=== PATIENT | male | born 1960 | race Caucasian/White ===

== ENCOUNTER 2019-03-27 12:29 | Observation (INO) ==
[2019-03-27 13:05] LABS: Bilirubin,Urine Negative (Negative); Blood,Urine Negative (Negative); Clarity,Urine Cloudy (Clear); Color,Urine Dark Yellow (Yellow); Glucose,Urine (UA) Normal (Normal); Ketones,Urine Negative (Negative); Leukocyte Esterase,Urine Large (Negative); Nitrite,Urine Negative (Negative); PH,Urine 7.5 pH Units (5.0-8.0); Protein,Urine 100 mg/dL (Neg-Trace); Specific Gravity,Urine > 1.030 (1.010-1.025); Urobilinogen,Urine Normal (Normal)
[2019-03-27 13:08] LABS: Bacteria,Urine Few per hpf (None-Few); Hyaline Casts,Urine Few per lpf (None-Few); RBC,Urine 50-100 per hpf (0-3); Squamous Epithelial Cell,Urine Many per lpf (None-Few); WBC,Urine TNTC per hpf (0-3)
[2019-03-27 13:54] LABS: Hematocrit 34.9 % (37.5-50.1); Hemoglobin 11.6 g/dL (12.9-16.9); Mean Corpuscular HGB Conc 33.2 g/dL (31.6-35.5); Mean Corpuscular Hemoglobin 34.1 pg (28.0-33.3); Mean Corpuscular Volume 102.6 fL (83.0-100.0); Mean Platelet Volume 11.5 fL (9.4-12.4); Platelet Count 124 K/mcL (140-400); Red Cell Distribution Width 12.6 % (11.5-14.5)
[2019-03-27 14:16] LABS: Alanine Aminotransferase 16 Units/L (7-52); Albumin 3.3 g/dL (3.5-5.7); Alkaline Phosphatase 72 Units/L (34-104); Aspartate Amino Transferase 16 Units/L (13-39); BUN/Creatinine Ratio 38 (6-26); Bilirubin,Total 0.3 mg/dL (0.3-1.0); Blood Urea Nitrogen 17 mg/dL (6-20); Calcium 8.8 mg/dL (8.6-10.3); Carbon Dioxide 26 mEq/L (23-29); Chloride 101 mEq/L (98-107); Globulin 3.3 g/dL (2.4-3.5); Glucose 94 mg/dL (70-105); Osmolality,Calculated 275 (280-300); Potassium 4.6 mEq/L (3.5-5.1); Sodium 132 mEq/L (136-145); Total Protein 6.6 g/dL (6.4-8.9); Troponin I < 0.03 ng/mL (< 0.04); eGFR For African Americans > 60 (> 60); eGFR For Non-African Americans > 60 (> 60)
[2019-03-27] MEDS ORDERED: cefTRIAXone 1,000 MG in Water for inj. (sterile) 10 ML IVP ONE (15:29)
[2019-03-27] MEDS ORDERED: Naloxone 0.4 MG/ML INJ IVP PRN (16:55)
[2019-03-27] MEDS ORDERED: Ipratropium/Albuterol Neb 3 ML IH PRN (18:31)
[2019-03-27] MEDS ORDERED: hydrALAZINE 25 MG TABLET GTUBE PRN (18:31)
[2019-03-27] MEDS ORDERED: Acetylcysteine 10% 2 ML INHSOL IH PRN (18:31)
[2019-03-27] MEDS: Ipratropium/Albuterol Neb 3 ML IH SCH ×2 (21:43→22:55)
[2019-03-27] MEDS: GuaiFENesin Liq 200 MG/10 ML UDC GTUBE SCH (22:53)
[2019-03-27] MEDS: Docusate Oral Soln 100 MG/10 ML UDC GTUBE SCH (22:53)
[2019-03-27] MEDS: *HR* OxyCODONE Immed Rel 5 MG TABLET GTUBE SCH (22:54)
[2019-03-27] MEDS: amLODIPine 5 MG TABLET GTUBE SCH (22:55)
[2019-03-27] MEDS: Ascorbic Acid 500 MG TABLET GTUBE SCH (22:55)
[2019-03-27] MEDS: Acetylcysteine 10% 2 ML INHSOL IH SCH (22:56)
[2019-03-27] MEDS: Nystatin POWDER 30 GM BOTTLE TP SCH (22:56)
[2019-03-27] MEDS: Artificial Tears SOLN 15 ML BOTTLE BOTH EYES SCH (22:56)
[2019-03-28 02:07] LABS: Basophils % 0.8 %; Eosinophils # 0.2 K/mcL (0.0-0.6); Hematocrit 32.2 % (37.5-50.1); Hemoglobin 10.4 g/dL (12.9-16.9); Immature Granulocytes % 0.6 % (0-4); Lymphocytes # 0.7 K/mcL (0.6-4.6); Lymphocytes % 18.2 %; Mean Corpuscular HGB Conc 32.3 g/dL (31.6-35.5); Mean Corpuscular Hemoglobin 34.2 pg (28.0-33.3); Mean Corpuscular Volume 105.9 fL (83.0-100.0); Mean Platelet Volume 11.9 fL (9.4-12.4); Monocytes # 0.6 K/mcL (0.0-1.3); Monocytes % 16.6 %; Neutrophils # 2.1 K/mcL (1.6-8.9); Platelet Count 124 K/mcL (140-400); Red Blood Count 3.04 M/mcL (4.19-5.50); Red Cell Distribution Width 12.4 % (11.5-14.5); Segmented Neutrophils % 58.8 %; White Blood Count 3.6 K/mcL (4.3-11.1)
[2019-03-28 02:30] LABS: BUN/Creatinine Ratio 35 (6-26); Blood Urea Nitrogen 15 mg/dL (6-20); Calcium 8.4 mg/dL (8.6-10.3); Carbon Dioxide 26 mEq/L (23-29); Chloride 100 mEq/L (98-107); Glucose 95 mg/dL (70-105); Osmolality,Calculated 275 (280-300); Potassium 4.2 mEq/L (3.5-5.1); Sodium 132 mEq/L (136-145); eGFR For African Americans > 60 (> 60); eGFR For Non-African Americans > 60 (> 60)
[2019-03-28] MEDS: Ipratropium/Albuterol Neb 3 ML IH SCH ×6 (03:52→23:43)
[2019-03-28] MEDS: Acetylcysteine 10% 2 ML INHSOL IH SCH ×4 (03:52→23:43)
[2019-03-28] MEDS: Ascorbic Acid 500 MG TABLET GTUBE SCH ×4 (09:12→22:42)
[2019-03-28] MEDS: *HR* OxyCODONE Immed Rel 5 MG TABLET GTUBE SCH ×3 (09:12→22:42)
[2019-03-28] MEDS: GuaiFENesin Liq 200 MG/10 ML UDC GTUBE SCH ×4 (09:12→22:41)
[2019-03-28] MEDS: amLODIPine 5 MG TABLET GTUBE SCH ×2 (09:12→22:42)
[2019-03-28] MEDS: Docusate Oral Soln 100 MG/10 ML UDC GTUBE SCH ×2 (09:12→22:41)
[2019-03-28] MEDS: Artificial Tears SOLN 15 ML BOTTLE BOTH EYES SCH ×2 (09:20→22:42)
[2019-03-28] MEDS: Nystatin POWDER 30 GM BOTTLE TP SCH ×3 (09:20→22:43)
[2019-03-28] MEDS ORDERED: SELENIUM SULFIDE APPL TP SCH (18:31)
[2019-03-28] MEDS: *HR* Heparin 5,000 UNIT/ML VIAL SQ SCH (22:41)
[2019-03-29 02:31] LABS: Basophils % 0.6 %; Eosinophils # 0.3 K/mcL (0.0-0.6); Eosinophils % 7.5 %; Hematocrit 34.5 % (37.5-50.1); Hemoglobin 11.2 g/dL (12.9-16.9); Immature Granulocytes % 0.6 % (0-4); Lymphocytes % 25.1 %; Mean Corpuscular HGB Conc 32.5 g/dL (31.6-35.5); Mean Corpuscular Hemoglobin 33.6 pg (28.0-33.3); Mean Corpuscular Volume 103.6 fL (83.0-100.0); Mean Platelet Volume 11.6 fL (9.4-12.4); Monocytes # 0.7 K/mcL (0.0-1.3); Monocytes % 20.9 %; Neutrophils # 1.5 K/mcL (1.6-8.9); Platelet Count 120 K/mcL (140-400); Red Blood Count 3.33 M/mcL (4.19-5.50); Red Cell Distribution Width 11.8 % (11.5-14.5); Segmented Neutrophils % 45.3 %; White Blood Count 3.4 K/mcL (4.3-11.1)
[2019-03-29 02:40] LABS: BUN/Creatinine Ratio 23 (6-26); Blood Urea Nitrogen 10 mg/dL (6-20); Calcium 8.8 mg/dL (8.6-10.3); Carbon Dioxide 30 mEq/L (23-29); Chloride 100 mEq/L (98-107); Glucose 106 mg/dL (70-105); Osmolality,Calculated 275 (280-300); Potassium 4.9 mEq/L (3.5-5.1); Sodium 133 mEq/L (136-145); eGFR For African Americans > 60 (> 60); eGFR For Non-African Americans > 60 (> 60)
[2019-03-29 02:46] LABS: Lymphocytes # 0.9 K/mcL (0.6-4.6)
[2019-03-29 03:10] LABS: Platelet Estimate Normal (Normal); Reactive Lymphocytes Present (Not Present)
[2019-03-29] MEDS: Ipratropium/Albuterol Neb 3 ML IH SCH ×6 (03:40→22:53)
[2019-03-29] MEDS: Acetylcysteine 10% 2 ML INHSOL IH SCH ×4 (03:42→22:42)
[2019-03-29] MEDS: *HR* Heparin 5,000 UNIT/ML VIAL SQ SCH ×3 (05:09→21:48)
[2019-03-29] MEDS: amLODIPine 5 MG TABLET GTUBE SCH ×2 (10:04→22:16)
[2019-03-29] MEDS: Docusate Oral Soln 100 MG/10 ML UDC GTUBE SCH ×2 (10:04→21:51)
[2019-03-29] MEDS: *HR* OxyCODONE Immed Rel 5 MG TABLET GTUBE SCH ×3 (10:04→21:47)
[2019-03-29] MEDS: Ascorbic Acid 500 MG TABLET GTUBE SCH ×4 (10:04→21:47)
[2019-03-29] MEDS: GuaiFENesin Liq 200 MG/10 ML UDC GTUBE SCH ×4 (10:04→21:50)
[2019-03-29] MEDS: Artificial Tears SOLN 15 ML BOTTLE BOTH EYES SCH ×2 (10:05→22:18)
[2019-03-29] MEDS: Nystatin POWDER 30 GM BOTTLE TP SCH ×3 (10:05→22:19)
[2019-03-29] MEDS ORDERED: cefTRIAXone 1,000 MG in Water for inj. (sterile) 10 ML IVP ONE (15:34)
[2019-03-29] MEDS ORDERED: *HR* Propofol 200 MG/20 ML VIAL IVP ONE (18:07)
[2019-03-29] MEDS ORDERED: Lidocaine -MPF 2% 2 ML VIAL ONE (18:07)
[2019-03-29] MEDS ORDERED: Ondansetron 4 MG/2 ML VIAL ONE (18:08)
[2019-03-29] MEDS ORDERED: *HR* FentaNYL (PF) 100 MCG/2 ML VIAL ONE (18:09)
[2019-03-29] MEDS ORDERED: Isovue-300 50ML VIAL ONE (18:14)
[2019-03-29] MEDS ORDERED: *HR* HYDROmorphone (PF) 1 MG/ML SYRINGE IVP PRN (18:27)
[2019-03-29] MEDS ORDERED: *HR* Promethazine 25 MG/ML VIAL IVP PRN (18:27)
[2019-03-29] MEDS ORDERED: Ondansetron 4 MG/2 ML VIAL IVP ONE (18:27)
[2019-03-29] MEDS ORDERED: Naloxone 0.4 MG/ML INJ IVP PRN (19:51)
[2019-03-29] MEDS ORDERED: Acetylcysteine 10% 2 ML INHSOL IH PRN (19:51)
[2019-03-29] MEDS ORDERED: Ipratropium/Albuterol Neb 3 ML IH PRN (19:51)
[2019-03-29] MEDS ORDERED: hydrALAZINE 25 MG TABLET GTUBE PRN (19:51)
[2019-03-30 01:54] LABS: Basophils % 0.5 %; Eosinophils # 0.2 K/mcL (0.0-0.6); Eosinophils % 10.2 %; Hematocrit 33.5 % (37.5-50.1); Hemoglobin 11.2 g/dL (12.9-16.9); Immature Granulocytes % 1.4 % (0-4); Lymphocytes # 0.5 K/mcL (0.6-4.6); Lymphocytes % 24.5 %; Mean Corpuscular HGB Conc 33.4 g/dL (31.6-35.5); Mean Corpuscular Hemoglobin 33.4 pg (28.0-33.3); Mean Platelet Volume 11.4 fL (9.4-12.4); Monocytes # 0.4 K/mcL (0.0-1.3); Monocytes % 16.7 %; Platelet Count 118 K/mcL (140-400); Red Blood Count 3.35 M/mcL (4.19-5.50); Red Cell Distribution Width 11.9 % (11.5-14.5); Segmented Neutrophils % 46.7 %; White Blood Count 2.2 K/mcL (4.3-11.1)
[2019-03-30 02:18] LABS: BUN/Creatinine Ratio 22 (6-26); Blood Urea Nitrogen 10 mg/dL (6-20); Calcium 8.3 mg/dL (8.6-10.3); Carbon Dioxide 26 mEq/L (23-29); Chloride 101 mEq/L (98-107); Glucose 92 mg/dL (70-105); Osmolality,Calculated 273 (280-300); Sodium 132 mEq/L (136-145); eGFR For African Americans > 60 (> 60); eGFR For Non-African Americans > 60 (> 60)
[2019-03-30] MEDS: Acetylcysteine 10% 2 ML INHSOL IH SCH ×4 (03:50→20:04)
[2019-03-30] MEDS: Ipratropium/Albuterol Neb 3 ML IH SCH ×6 (03:50→23:30)
[2019-03-30] MEDS: *HR* Heparin 5,000 UNIT/ML VIAL SQ SCH ×3 (05:20→23:38)
[2019-03-30] MEDS: *HR* OxyCODONE Immed Rel 5 MG TABLET GTUBE SCH ×3 (08:50→21:57)
[2019-03-30] MEDS: amLODIPine 5 MG TABLET GTUBE SCH ×2 (08:50→21:57)
[2019-03-30] MEDS: Ascorbic Acid 500 MG TABLET GTUBE SCH ×4 (08:50→21:57)
[2019-03-30] MEDS: Docusate Oral Soln 100 MG/10 ML UDC GTUBE SCH ×2 (08:51→21:56)
[2019-03-30] MEDS: GuaiFENesin Liq 200 MG/10 ML UDC GTUBE SCH ×4 (08:51→21:57)
[2019-03-30] MEDS: Artificial Tears SOLN 15 ML BOTTLE BOTH EYES SCH ×2 (09:00→23:39)
[2019-03-30] MEDS: Nystatin POWDER 30 GM BOTTLE TP SCH ×3 (09:00→23:38)
[2019-03-31] MEDS: Ipratropium/Albuterol Neb 3 ML IH SCH ×3 (03:59→11:16)
[2019-03-31] MEDS: Acetylcysteine 10% 2 ML INHSOL IH SCH ×2 (04:00→11:16)
[2019-03-31] MEDS: *HR* Heparin 5,000 UNIT/ML VIAL SQ SCH (04:22)
[2019-03-31] MEDS: GuaiFENesin Liq 200 MG/10 ML UDC GTUBE SCH (10:23)
[2019-03-31] MEDS: *HR* OxyCODONE Immed Rel 5 MG TABLET GTUBE SCH (10:31)
[2019-03-31] MEDS: Docusate Oral Soln 100 MG/10 ML UDC GTUBE SCH (10:31)
[2019-03-31] MEDS: amLODIPine 5 MG TABLET GTUBE SCH (10:31)
[2019-03-31] MEDS: Ascorbic Acid 500 MG TABLET GTUBE SCH (10:31)
[2019-03-31] MEDS: Artificial Tears SOLN 15 ML BOTTLE BOTH EYES SCH (10:31)
[2019-03-31] MEDS: Nystatin POWDER 30 GM BOTTLE TP SCH (10:31)
[2019-03-31 11:08] VITALS: BP 168/84
[2019-04-04 10:46] LABS: Calculi Mass 427 mg
== END 2019-03-31 12:54 ==
LOC: 2NENU 12:29 → EMEROOARM 12:29 → SUATTDRO 16:34 → 2NENU 18:35
PROVIDERS: ADMIT Internal Medicine; ATTEND Family Medicine

== ENCOUNTER 2020-08-27 18:42 | Inpatient (IN) ==
[2020-08-27] MEDS ORDERED: cefTRIAXone 1,000 MG in Water for inj. (sterile) 10 ML IVP ONE (19:25)
[2020-08-27] MEDS ORDERED: 0.9 % Sodium Chloride 1,000 ML IVC ONE (19:25)
[2020-08-27 20:23] LABS: Basophils % 0.2 %; Hematocrit 38.5 % (37.5-50.1); Hemoglobin 12.3 g/dL (12.9-16.9); Immature Granulocytes % 0.6 % (0-4); Immature Platelets 7.2 % (1.1-6.1); Lymphocytes # 0.5 K/mcL (0.6-4.6); Lymphocytes % 3.6 %; Mean Corpuscular HGB Conc 31.9 g/dL (31.6-35.5); Mean Corpuscular Hemoglobin 33.6 pg (28.0-33.3); Mean Corpuscular Volume 105.2 fL (83.0-100.0); Mean Platelet Volume 11.3 fL (9.4-12.4); Monocytes # 0.3 K/mcL (0.0-1.3); Monocytes % 2.2 %; Neutrophils # 12.1 K/mcL (1.6-8.9); Platelet Count 100 K/mcL (140-400); Red Blood Count 3.66 M/mcL (4.19-5.50); Red Cell Distribution Width 11.6 % (11.5-14.5); Segmented Neutrophils % 93.4 %
[2020-08-27 20:25] LABS: INR 1.3; Prothrombin Time 14.9 Seconds (9.4-12.1)
[2020-08-27 20:37] LABS: Alanine Aminotransferase 14 Units/L (7-52); Albumin 3.8 g/dL (3.5-5.7); Albumin/Globulin Ratio 1.1 (1.1-2.2); Alkaline Phosphatase 72 Units/L (34-104); Aspartate Amino Transferase 17 Units/L (13-39); BUN/Creatinine Ratio 54 (6-26); Bilirubin,Direct 0.2 mg/dL (0.0-0.2); Bilirubin,Indirect 0.3 mg/dL (0.0-1.0); Bilirubin,Total 0.5 mg/dL (0.3-1.0); Blood Urea Nitrogen 31 mg/dL (8-23); Calcium 9.3 mg/dL (8.6-10.3); Carbon Dioxide 28 mEq/L (23-29); Chloride 103 mEq/L (98-107); Globulin 3.4 g/dL (2.4-3.5); Glucose 110 mg/dL (70-105); Osmolality,Calculated 291 (280-300); Potassium 3.9 mEq/L (3.5-5.1); Sodium 137 mEq/L (136-145); Total Protein 7.2 g/dL (6.4-8.9); eGFR For African Americans > 60 (> 60); eGFR For Non-African Americans > 60 (> 60)
[2020-08-27 20:42] LABS: Bacteria,Urine Moderate per hpf (None-Few); Bilirubin,Urine Negative (Negative); Blood,Urine Moderate (Negative); Budding Yeast,Urine Few per hpf (None Seen); Clarity,Urine Turbid (Clear); Color,Urine Yellow (Yellow); Glucose,Urine (UA) Normal (Normal); Ketones,Urine Negative (Negative); Leukocyte Esterase,Urine Large (Negative); Mucus,Urine Many per lpf (None-Few); Nitrite,Urine Negative (Negative); Protein,Urine 100 mg/dL (Neg-Trace); RBC,Urine 30-50 per hpf (0-3); Specific Gravity,Urine > 1.030 (1.010-1.025); Squamous Epithelial Cell,Urine Moderate per hpf (None-Few); WBC,Urine TNTC per hpf (0-3)
[2020-08-27 21:41] LABS: Adenovirus Not Detected (Not Detect); Coronavirus 229E Not Detected (Not Detect); Coronavirus HKU1 Not Detected (Not Detect); Coronavirus NL63 Not Detected (Not Detect); Coronavirus OC43 Not Detected (Not Detect); Human Metapneumovirus Not Detected (Not Detect); Human Rhinovirus/Enterovirus Not Detected (Not Detect); Influenza A Subtype 2009 H1 Not Detected (Not Detect); SARS-CoV-2 Not Detected (Not Detect)
[2020-08-27 21:42] LABS: Bordetella Pertussis Not Detected (Not Detect); Chlamydophila pneumoniae Not Detected (Not Detect); Influenza B Not Detected (Not Detect); Mycoplasma pneumoniae Not Detected (Not Detect); Parainfluenza Virus 1 Not Detected (Not Detect); Parainfluenza Virus 2 Not Detected (Not Detect); Parainfluenza Virus 3 Not Detected (Not Detect); Parainfluenza Virus 4 Not Detected (Not Detect); Respiratory Syncytial Virus Not Detected (Not Detect)
[2020-08-27] MEDS ORDERED: Doxycycline 100 MG in 0.9 % Sodium Chloride Mini Bag 100 ML IVPB ONE (21:49)
[2020-08-27] MEDS ORDERED: MetroNIDAZOLE 500 MG/100 ML 500 MG/100 ML BAG IVPB ONE (21:52)
[2020-08-27] MEDS ORDERED: Azithromycin 500 MG in 0.9 % Sodium Chloride 250 ML IVPB ONE (21:52)
[2020-08-27] MEDS ORDERED: Naloxone 0.4 MG/ML INJ IVP PRN (23:50)
[2020-08-27] MEDS ORDERED: Ondansetron 4 MG/2 ML VIAL IVP PRN (23:50)
[2020-08-28] MEDS: 0.9 % Sodium Chloride 1,000 ML IVC SCH ×2 (01:46→10:38)
[2020-08-28 07:13] LABS: Basophils % 0.1 %; Hematocrit 33.6 % (37.5-50.1); Hemoglobin 10.6 g/dL (12.9-16.9); Immature Granulocytes % 0.4 % (0-4); Immature Platelets 7.4 % (1.1-6.1); Lymphocytes # 0.5 K/mcL (0.6-4.6); Lymphocytes % 6.4 %; Mean Corpuscular HGB Conc 31.5 g/dL (31.6-35.5); Mean Corpuscular Hemoglobin 33.2 pg (28.0-33.3); Mean Corpuscular Volume 105.3 fL (83.0-100.0); Mean Platelet Volume 11.9 fL (9.4-12.4); Monocytes # 0.5 K/mcL (0.0-1.3); Monocytes % 7.1 %; Red Blood Count 3.19 M/mcL (4.19-5.50); Red Cell Distribution Width 11.7 % (11.5-14.5); White Blood Count 7.5 K/mcL (4.3-11.1)
[2020-08-28 07:14] LABS: Neutrophils # 6.5 K/mcL (1.6-8.9); Platelet Count 80 K/mcL (140-400)
[2020-08-28 07:15] LABS: BUN/Creatinine Ratio 56 (6-26); Blood Urea Nitrogen 28 mg/dL (8-23); Calcium 9.1 mg/dL (8.6-10.3); Carbon Dioxide 27 mEq/L (23-29); Chloride 108 mEq/L (98-107); Glucose 103 mg/dL (70-105); Osmolality,Calculated 294 (280-300); Potassium 4.4 mEq/L (3.5-5.1); Sodium 139 mEq/L (136-145); eGFR For African Americans > 60 (> 60); eGFR For Non-African Americans > 60 (> 60)
[2020-08-28 07:30] LABS: Platelet Estimate Slight Decrease (Normal); Reactive Lymphocytes Present (Not Present)
[2020-08-28] MEDS ORDERED: cefTRIAXone 1,000 MG in 0.9 % Sodium Chloride Mini Bag 100 ML IVPB SCH (09:00)
[2020-08-28] MEDS: *HR* Enoxaparin 40 MG/0.4 ML SYRINGE SQ SCH (10:28)
[2020-08-28] MEDS: Piperacillin/Tazobactam 3.375 GM in 0.9 % Sodium Chloride Mini Bag 100 ML IVPB SCH (15:10)
[2020-08-28] MEDS: Docusate Oral Soln 100 MG/10 ML UDC GTUBE SCH (20:04)
[2020-08-28] MEDS: *HR* OxyCODONE Immed Rel 5 MG TABLET GTUBE SCH (20:05)
[2020-08-28] MEDS: Ascorbic Acid 500 MG TABLET GTUBE SCH (20:05)
[2020-08-28] MEDS: CASTOR OIL TP SCH (20:08)
[2020-08-28] MEDS: BALSAM PERU TP SCH (20:08)
[2020-08-28] MEDS: Desitin (Zinc Oxide) 56 GM TUBE TP SCH (21:23)
[2020-08-28] MEDS: Artificial Tears SOLN 15 ML BOTTLE BOTH EYES SCH (21:23)
[2020-08-28] MEDS: Nystatin POWDER 30 GM BOTTLE TP SCH (21:24)
[2020-08-28] MEDS: Ipratropium/Albuterol Neb 3 ML IH SCH (22:02)
[2020-08-28] MEDS ORDERED: D5% in 0.45% NACL 1,000 ML IVC ONE (22:13)
[2020-08-28] MEDS: D5% in 0.45% NACL 1,000 ML IVC SCH (22:18)
[2020-08-28] MEDS: Azithromycin 500 MG in 0.9 % Sodium Chloride 250 ML IVPB SCH (22:21)
[2020-08-28] MEDS: Petrolatum, White OINT.PACK TP SCH (22:32)
[2020-08-29] MEDS: *HR* OxyCODONE Immed Rel 5 MG TABLET GTUBE SCH ×5 (00:30→23:40)
[2020-08-29] MEDS: Piperacillin/Tazobactam 3.375 GM in 0.9 % Sodium Chloride Mini Bag 100 ML IVPB SCH ×3 (03:44→23:42)
[2020-08-29] MEDS: Ipratropium/Albuterol Neb 3 ML IH SCH ×4 (03:57→22:29)
[2020-08-29] MEDS: *HR* Enoxaparin 40 MG/0.4 ML SYRINGE SQ SCH (08:23)
[2020-08-29] MEDS: Lactobacillus 1 EACH CAP.SPRINK GTUBE SCH (08:26)
[2020-08-29] MEDS: amLODIPine 5 MG TABLET GTUBE SCH (08:27)
[2020-08-29] MEDS: Ascorbic Acid 500 MG TABLET GTUBE SCH ×3 (08:28→23:39)
[2020-08-29] MEDS: Famotidine 20 MG TABLET GTUBE SCH ×2 (08:28→17:40)
[2020-08-29] MEDS: Desitin (Zinc Oxide) 56 GM TUBE TP SCH ×3 (08:30→23:41)
[2020-08-29] MEDS: Nystatin POWDER 30 GM BOTTLE TP SCH ×2 (08:30→23:42)
[2020-08-29] MEDS ORDERED: SELENIUM SULFIDE TP SCH (09:00)
[2020-08-29] MEDS: Artificial Tears SOLN 15 ML BOTTLE BOTH EYES SCH ×2 (09:42→23:42)
[2020-08-29] MEDS: Docusate Oral Soln 100 MG/10 ML UDC GTUBE SCH ×2 (10:02→23:39)
[2020-08-29] MEDS: CASTOR OIL TP SCH (10:06)
[2020-08-29] MEDS: BALSAM PERU TP SCH (10:06)
[2020-08-29] MEDS: Petrolatum, White OINT.PACK TP SCH ×2 (10:07→23:42)
[2020-08-29] MEDS: D5% in 0.45% NACL 1,000 ML IVC SCH (12:15)
[2020-08-29] MEDS: hydrALAZINE 25 MG TABLET GTUBE PRN (14:46)
[2020-08-29 18:11] LABS: Basophils % 0.5 %; Mean Corpuscular HGB Conc 31.5 g/dL (31.6-35.5); Mean Platelet Volume 11.8 fL (9.4-12.4); Red Cell Distribution Width 11.5 % (11.5-14.5)
[2020-08-29 18:12] LABS: Eosinophils # 0.1 K/mcL (0.0-0.6); Eosinophils % 1.3 %; Hematocrit 35.5 % (37.5-50.1); Hemoglobin 11.2 g/dL (12.9-16.9); Immature Granulocytes % 0.3 % (0-4); Immature Platelets 8.6 % (1.1-6.1); Lymphocytes # 0.6 K/mcL (0.6-4.6); Lymphocytes % 14.4 %; Mean Corpuscular Hemoglobin 33.1 pg (28.0-33.3); Monocytes # 0.5 K/mcL (0.0-1.3); Monocytes % 12.1 %; Red Blood Count 3.38 M/mcL (4.19-5.50); Segmented Neutrophils % 71.4 %
[2020-08-29 18:15] LABS: Neutrophils # 2.9 K/mcL (1.6-8.9); Platelet Count 88 K/mcL (140-400)
[2020-08-29 18:28] LABS: BUN/Creatinine Ratio 55 (6-26); Blood Urea Nitrogen 17 mg/dL (8-23); Calcium 8.9 mg/dL (8.6-10.3); Carbon Dioxide 27 mEq/L (23-29); Chloride 107 mEq/L (98-107); Glucose 118 mg/dL (70-105); Osmolality,Calculated 287 (280-300); Potassium 3.4 mEq/L (3.5-5.1); Sodium 137 mEq/L (136-145); eGFR For African Americans > 60 (> 60); eGFR For Non-African Americans > 60 (> 60)
[2020-08-29 18:50] LABS: Large Platelets Present (Not Present); Platelet Estimate Decreased (Normal)
[2020-08-29] MEDS: Azithromycin 500 MG in 0.9 % Sodium Chloride 250 ML IVPB SCH (23:40)
[2020-08-30] MEDS: Ipratropium/Albuterol Neb 3 ML IH SCH ×5 (03:47→22:28)
[2020-08-30 05:50] LABS: Acinetobacter baumannii by PCR Not Detected (Not Detect); Candida albicans by PCR Not Detected (Not Detect); Candida glabrata by PCR Not Detected (Not Detect); Candida krusei by PCR Not Detected (Not Detect); Candida parapsilosis by PCR Not Detected (Not Detect); Candida tropicalis by PCR Not Detected (Not Detect); Enterobacter cloacae Cmplx PCR Not Detected (Not Detect); Enterobacteriaceae by PCR Not Detected (Not Detect); Enterococcus by PCR Not Detected (Not Detect); Escherichia coli by PCR Not Detected (Not Detect); Klebsiella oxytoca by PCR Not Detected (Not Detect); Klebsiella pneumoniae by PCR Not Detected (Not Detect); Proteus by PCR Not Detected (Not Detect); Pseudomonas aeruginosa by PCR Not Detected (Not Detect); Serratia marcescens by PCR Not Detected (Not Detect); Staphylococcus aureus by PCR DETECTED (Not Detect); Streptococcus agalactiae(B)PCR Not Detected (Not Detect); Streptococcus by PCR Not Detected (Not Detect); Streptococcus pneumoniae PCR Not Detected (Not Detect); Streptococcus pyogenes (A) PCR Not Detected (Not Detect); mecA Methicillin-Resist Gene DETECTED (Not Detect)
[2020-08-30] MEDS: *HR* OxyCODONE Immed Rel 5 MG TABLET GTUBE SCH ×3 (06:08→17:11)
[2020-08-30] MEDS: Piperacillin/Tazobactam 3.375 GM in 0.9 % Sodium Chloride Mini Bag 100 ML IVPB SCH ×3 (06:08→20:35)
[2020-08-30 07:18] LABS: Basophils % 0.3 %; Eosinophils # 0.1 K/mcL (0.0-0.6); Hematocrit 34.5 % (37.5-50.1); Immature Granulocytes % 0.5 % (0-4); Lymphocytes # 0.7 K/mcL (0.6-4.6); Lymphocytes % 17.2 %; Mean Corpuscular HGB Conc 31.9 g/dL (31.6-35.5); Mean Corpuscular Volume 103.6 fL (83.0-100.0); Mean Platelet Volume 11.8 fL (9.4-12.4); Monocytes # 0.4 K/mcL (0.0-1.3); Monocytes % 10.9 %; Neutrophils # 2.7 K/mcL (1.6-8.9); Platelet Count 102 K/mcL (140-400); Red Blood Count 3.33 M/mcL (4.19-5.50); Red Cell Distribution Width 11.4 % (11.5-14.5); Segmented Neutrophils % 68.1 %
[2020-08-30 07:42] LABS: BUN/Creatinine Ratio 45 (6-26); Blood Urea Nitrogen 15 mg/dL (8-23); Calcium 8.6 mg/dL (8.6-10.3); Carbon Dioxide 27 mEq/L (23-29); Chloride 106 mEq/L (98-107); Glucose 121 mg/dL (70-105); Osmolality,Calculated 294 (280-300); Potassium 3.1 mEq/L (3.5-5.1); Sodium 141 mEq/L (136-145); eGFR For African Americans > 60 (> 60); eGFR For Non-African Americans > 60 (> 60)
[2020-08-30] MEDS: amLODIPine 5 MG TABLET GTUBE SCH (08:42)
[2020-08-30] MEDS: Lactobacillus 1 EACH CAP.SPRINK GTUBE SCH (08:44)
[2020-08-30] MEDS: Ascorbic Acid 500 MG TABLET GTUBE SCH ×3 (08:44→20:34)
[2020-08-30] MEDS: Docusate Oral Soln 100 MG/10 ML UDC GTUBE SCH ×2 (08:46→20:34)
[2020-08-30] MEDS: *HR* Enoxaparin 40 MG/0.4 ML SYRINGE SQ SCH (08:52)
[2020-08-30] MEDS: Famotidine 20 MG TABLET GTUBE SCH ×2 (08:53→17:11)
[2020-08-30] MEDS: Nystatin POWDER 30 GM BOTTLE TP SCH ×2 (08:53→20:33)
[2020-08-30] MEDS: Desitin (Zinc Oxide) 56 GM TUBE TP SCH ×3 (08:54→20:33)
[2020-08-30] MEDS: Petrolatum, White OINT.PACK TP SCH ×2 (08:54→20:34)
[2020-08-30] MEDS: Artificial Tears SOLN 15 ML BOTTLE BOTH EYES SCH ×2 (08:54→20:33)
[2020-08-30] MEDS: Vancomycin 1,250 MG/262.5 ML IV.SOLN IVPB SCH ×2 (08:55→20:36)
[2020-08-30] MEDS ORDERED: Potassium Chloride Elixir 20 MEQ/15 ML UDC GTUBE ONE ×2 (09:50→11:55)
[2020-08-30] MEDS ORDERED: Perflutren Lipid Microsphere 1.3 ML in 0.9 % Sodium Chloride 8.7 ML IVP PRN (11:47)
[2020-08-31] MEDS: *HR* OxyCODONE Immed Rel 5 MG TABLET GTUBE SCH ×4 (01:31→17:41)
[2020-08-31 03:41] LABS: Hematocrit 34.6 % (37.5-50.1); Mean Corpuscular HGB Conc 31.8 g/dL (31.6-35.5)
[2020-08-31 03:43] LABS: Immature Platelets 7.8 % (1.1-6.1); Mean Corpuscular Volume 103.9 fL (83.0-100.0); Mean Platelet Volume 11.6 fL (9.4-12.4); Red Blood Count 3.33 M/mcL (4.19-5.50); Red Cell Distribution Width 11.3 % (11.5-14.5); White Blood Count 4.2 K/mcL (4.3-11.1)
[2020-08-31 03:56] LABS: BUN/Creatinine Ratio 39 (6-26); Blood Urea Nitrogen 13 mg/dL (8-23); Carbon Dioxide 28 mEq/L (23-29); Chloride 101 mEq/L (98-107); Glucose 124 mg/dL (70-105); Osmolality,Calculated 290 (280-300); Potassium 3.5 mEq/L (3.5-5.1); Sodium 139 mEq/L (136-145); eGFR For African Americans > 60 (> 60); eGFR For Non-African Americans > 60 (> 60)
[2020-08-31] MEDS: hydrALAZINE 25 MG TABLET GTUBE PRN ×2 (04:33→11:57)
[2020-08-31] MEDS: Piperacillin/Tazobactam 3.375 GM in 0.9 % Sodium Chloride Mini Bag 100 ML IVPB SCH ×4 (04:33→20:48)
[2020-08-31] MEDS: Ipratropium/Albuterol Neb 3 ML IH SCH ×4 (04:34→22:44)
[2020-08-31] MEDS: Vancomycin 1,250 MG/262.5 ML IV.SOLN IVPB SCH (09:06)
[2020-08-31] MEDS: Docusate Oral Soln 100 MG/10 ML UDC GTUBE SCH ×2 (09:10→20:48)
[2020-08-31] MEDS: Lactobacillus 1 EACH CAP.SPRINK GTUBE SCH (09:15)
[2020-08-31] MEDS: amLODIPine 5 MG TABLET GTUBE SCH (09:17)
[2020-08-31] MEDS: *HR* Enoxaparin 40 MG/0.4 ML SYRINGE SQ SCH (09:17)
[2020-08-31] MEDS: Ascorbic Acid 500 MG TABLET GTUBE SCH ×3 (09:17→20:49)
[2020-08-31] MEDS: Nystatin POWDER 30 GM BOTTLE TP SCH ×2 (09:18→20:49)
[2020-08-31] MEDS: Famotidine 20 MG TABLET GTUBE SCH ×2 (09:20→16:26)
[2020-08-31] MEDS: Petrolatum, White OINT.PACK TP SCH ×2 (09:21→20:50)
[2020-08-31] MEDS: Desitin (Zinc Oxide) 56 GM TUBE TP SCH ×3 (09:21→20:50)
[2020-08-31] MEDS: Artificial Tears SOLN 15 ML BOTTLE BOTH EYES SCH ×2 (09:24→20:51)
[2020-08-31] MEDS: Vancomycin 1,500 MG/265 ML IV.SOLN IVPB SCH (21:33)
[2020-09-01] MEDS: *HR* OxyCODONE Immed Rel 5 MG TABLET GTUBE SCH ×5 (00:51→23:59)
[2020-09-01] MEDS: hydrALAZINE 25 MG TABLET GTUBE PRN ×3 (00:51→12:02)
[2020-09-01] MEDS: Ipratropium/Albuterol Neb 3 ML IH SCH ×4 (03:30→21:35)
[2020-09-01] MEDS: Piperacillin/Tazobactam 3.375 GM in 0.9 % Sodium Chloride Mini Bag 100 ML IVPB SCH ×3 (04:10→21:21)
[2020-09-01 04:55] LABS: Mean Corpuscular HGB Conc 33.2 g/dL (31.6-35.5); Red Cell Distribution Width 11.4 % (11.5-14.5)
[2020-09-01 04:57] LABS: Basophils % 0.6 %; Eosinophils # 0.4 K/mcL (0.0-0.6); Eosinophils % 7.6 %; Hematocrit 37.4 % (37.5-50.1); Hemoglobin 12.4 g/dL (12.9-16.9); Immature Granulocytes % 0.2 % (0-4); Immature Platelets 7.9 % (1.1-6.1); Lymphocytes # 1.1 K/mcL (0.6-4.6); Lymphocytes % 20.9 %; Mean Corpuscular Hemoglobin 33.8 pg (28.0-33.3); Mean Corpuscular Volume 101.9 fL (83.0-100.0); Mean Platelet Volume 11.6 fL (9.4-12.4); Monocytes # 0.6 K/mcL (0.0-1.3); Monocytes % 11.1 %; Platelet Count 124 K/mcL (140-400); Red Blood Count 3.67 M/mcL (4.19-5.50); Segmented Neutrophils % 59.6 %; White Blood Count 5.1 K/mcL (4.3-11.1)
[2020-09-01 05:14] LABS: BUN/Creatinine Ratio 32 (6-26); Blood Urea Nitrogen 12 mg/dL (8-23); Calcium 9.6 mg/dL (8.6-10.3); Carbon Dioxide 27 mEq/L (23-29); Chloride 102 mEq/L (98-107); Glucose 115 mg/dL (70-105); Osmolality,Calculated 289 (280-300); Potassium 3.6 mEq/L (3.5-5.1); Sodium 139 mEq/L (136-145); eGFR For African Americans > 60 (> 60); eGFR For Non-African Americans > 60 (> 60)
[2020-09-01] MEDS: Desitin (Zinc Oxide) 56 GM TUBE TP SCH ×3 (09:04→21:25)
[2020-09-01] MEDS: Nystatin POWDER 30 GM BOTTLE TP SCH ×2 (09:04→21:23)
[2020-09-01] MEDS: Artificial Tears SOLN 15 ML BOTTLE BOTH EYES SCH ×2 (09:04→21:22)
[2020-09-01] MEDS: Petrolatum, White OINT.PACK TP SCH ×2 (09:05→21:25)
[2020-09-01] MEDS: amLODIPine 5 MG TABLET GTUBE SCH (09:05)
[2020-09-01] MEDS: Ascorbic Acid 500 MG TABLET GTUBE SCH ×3 (09:05→21:25)
[2020-09-01] MEDS: Docusate Oral Soln 100 MG/10 ML UDC GTUBE SCH ×2 (09:06→22:01)
[2020-09-01] MEDS: Lactobacillus 1 EACH CAP.SPRINK GTUBE SCH (09:06)
[2020-09-01] MEDS: *HR* Enoxaparin 40 MG/0.4 ML SYRINGE SQ SCH (09:06)
[2020-09-01] MEDS: Famotidine 20 MG TABLET GTUBE SCH ×2 (09:07→17:15)
[2020-09-01] MEDS: Vancomycin 1,500 MG/265 ML IV.SOLN IVPB SCH (09:09)
[2020-09-02] MEDS: Ipratropium/Albuterol Neb 3 ML IH SCH ×4 (04:02→21:32)
[2020-09-02] MEDS: Piperacillin/Tazobactam 3.375 GM in 0.9 % Sodium Chloride Mini Bag 100 ML IVPB SCH ×2 (04:19→13:14)
[2020-09-02] MEDS: Vancomycin 1,500 MG/265 ML IV.SOLN IVPB SCH ×2 (04:19→13:14)
[2020-09-02] MEDS: *HR* OxyCODONE Immed Rel 5 MG TABLET GTUBE SCH ×3 (06:10→18:10)
[2020-09-02] MEDS: Lactobacillus 1 EACH CAP.SPRINK GTUBE SCH (09:27)
[2020-09-02] MEDS: Ascorbic Acid 500 MG TABLET GTUBE SCH ×3 (09:27→22:01)
[2020-09-02] MEDS: Docusate Oral Soln 100 MG/10 ML UDC GTUBE SCH ×2 (09:27→22:01)
[2020-09-02] MEDS: Famotidine 20 MG TABLET GTUBE SCH ×2 (09:27→18:06)
[2020-09-02] MEDS: amLODIPine 5 MG TABLET GTUBE SCH (09:28)
[2020-09-02] MEDS: *HR* Enoxaparin 40 MG/0.4 ML SYRINGE SQ SCH (09:28)
[2020-09-02] MEDS: Nystatin POWDER 30 GM BOTTLE TP SCH ×2 (09:29→22:03)
[2020-09-02] MEDS: Desitin (Zinc Oxide) 56 GM TUBE TP SCH ×3 (09:30→22:03)
[2020-09-02] MEDS: Artificial Tears SOLN 15 ML BOTTLE BOTH EYES SCH ×2 (09:30→22:02)
[2020-09-02] MEDS: Petrolatum, White OINT.PACK TP SCH ×2 (09:32→22:02)
[2020-09-02] MEDS ORDERED: *HR* Midazolam HCl 5 MG/ML VIAL IVP ONE (10:39)
[2020-09-02] MEDS ORDERED: *HR* FentaNYL (PF) 100 MCG/2 ML VIAL IVP ONE (10:39)
[2020-09-02] MEDS ORDERED: Lidocaine Viscous Oral Soln 15 ML SOLUTION MM PRN (10:41)
[2020-09-02] MEDS ORDERED: Lidocaine Viscous Oral Soln 15 ML SOLUTION MM ONE (10:45)
[2020-09-02] MEDS ORDERED: Lidocaine Viscous Oral Soln 15 ML SOLUTION ONE (10:47)
[2020-09-02 13:04] LABS: Basophils % 0.3 %; Eosinophils # 0.2 K/mcL (0.0-0.6); Eosinophils % 3.6 %; Hematocrit 34.6 % (37.5-50.1); Hemoglobin 11.6 g/dL (12.9-16.9); Immature Granulocytes % 0.3 % (0-4); Immature Platelets 4.8 % (1.1-6.1); Lymphocytes # 0.8 K/mcL (0.6-4.6); Lymphocytes % 14.3 %; Mean Corpuscular HGB Conc 33.5 g/dL (31.6-35.5); Mean Corpuscular Hemoglobin 34.1 pg (28.0-33.3); Mean Corpuscular Volume 101.8 fL (83.0-100.0); Mean Platelet Volume 11.3 fL (9.4-12.4); Monocytes # 0.8 K/mcL (0.0-1.3); Monocytes % 12.8 %; Platelet Count 139 K/mcL (140-400); Red Cell Distribution Width 11.7 % (11.5-14.5); Segmented Neutrophils % 68.7 %; White Blood Count 5.9 K/mcL (4.3-11.1)
[2020-09-02 13:19] LABS: Calcium 9.2 mg/dL (8.6-10.3); Potassium 3.5 mEq/L (3.5-5.1)
[2020-09-02] MEDS: metroNIDAZOLE 500 MG TABLET GTUBE SCH ×2 (15:48→22:01)
[2020-09-02] MEDS: hydrALAZINE 25 MG TABLET GTUBE PRN (16:07)
[2020-09-02] MEDS: Cefepime HCl 2,000 MG in 0.9 % Sodium Chloride Mini Bag 100 ML IVPB SCH (18:06)
[2020-09-03] MEDS: *HR* OxyCODONE Immed Rel 5 MG TABLET GTUBE SCH ×4 (00:31→18:33)
[2020-09-03] MEDS ORDERED: Vancomycin 1,500 MG/265 ML IV.SOLN IVPB SCH (01:00)
[2020-09-03] MEDS: hydrALAZINE 25 MG TABLET GTUBE PRN (02:19)
[2020-09-03 02:31] LABS: Basophils % 0.2 %; Eosinophils # 0.2 K/mcL (0.0-0.6); Hematocrit 34.8 % (37.5-50.1); Hemoglobin 11.1 g/dL (12.9-16.9); Immature Granulocytes % 0.4 % (0-4); Lymphocytes # 0.7 K/mcL (0.6-4.6); Mean Corpuscular HGB Conc 31.9 g/dL (31.6-35.5); Mean Corpuscular Hemoglobin 33.3 pg (28.0-33.3); Mean Corpuscular Volume 104.5 fL (83.0-100.0); Mean Platelet Volume 11.6 fL (9.4-12.4); Monocytes # 0.8 K/mcL (0.0-1.3); Neutrophils # 3.8 K/mcL (1.6-8.9); Platelet Count 140 K/mcL (140-400); Red Blood Count 3.33 M/mcL (4.19-5.50); Red Cell Distribution Width 11.9 % (11.5-14.5); Segmented Neutrophils % 69.4 %; White Blood Count 5.5 K/mcL (4.3-11.1)
[2020-09-03 02:53] LABS: Calcium 8.7 mg/dL (8.6-10.3); Potassium 3.8 mEq/L (3.5-5.1)
[2020-09-03] MEDS: Ipratropium/Albuterol Neb 3 ML IH SCH ×4 (03:56→21:58)
[2020-09-03] MEDS: Cefepime HCl 2,000 MG in 0.9 % Sodium Chloride Mini Bag 100 ML IVPB SCH (06:11)
[2020-09-03] MEDS: metroNIDAZOLE 500 MG TABLET GTUBE SCH ×3 (09:25→17:22)
[2020-09-03] MEDS: Lactobacillus 1 EACH CAP.SPRINK GTUBE SCH ×2 (09:26→13:09)
[2020-09-03] MEDS: Ascorbic Acid 500 MG TABLET GTUBE SCH ×3 (09:26→17:22)
[2020-09-03] MEDS: Artificial Tears SOLN 15 ML BOTTLE BOTH EYES SCH ×2 (09:27→23:36)
[2020-09-03] MEDS: Docusate Oral Soln 100 MG/10 ML UDC GTUBE SCH ×2 (09:27→13:09)
[2020-09-03] MEDS: Desitin (Zinc Oxide) 56 GM TUBE TP SCH ×3 (09:27→23:36)
[2020-09-03] MEDS: Nystatin POWDER 30 GM BOTTLE TP SCH ×2 (09:28→23:36)
[2020-09-03] MEDS: Petrolatum, White OINT.PACK TP SCH ×2 (09:29→23:37)
[2020-09-03] MEDS: amLODIPine 5 MG TABLET GTUBE SCH ×2 (09:30→13:10)
[2020-09-03 14:16] LABS: Uric Acid 4.5 mg/dL (2.3-7.6)
[2020-09-03] MEDS: DAPTOmycin 500 MG in 0.9 % Sodium Chloride 100 ML IVPB SCH (14:27)
[2020-09-03 15:35] LABS: Sodium, Urine 91.2 mEq/L
[2020-09-03] MEDS ORDERED: PROTEASE GTUBE ONE ×2 (15:45→22:00)
[2020-09-03] MEDS ORDERED: LIPASE GTUBE ONE ×2 (15:45→22:00)
[2020-09-03] MEDS ORDERED: SODIUM BICARBONATE GTUBE ONE ×2 (15:45→22:00)
[2020-09-03] MEDS ORDERED: AMYLASE GTUBE ONE ×2 (15:45→22:00)
[2020-09-03] MEDS ORDERED: [UNRECOGNIZED DRUG - OTHER] GTUBE ONE ×2 (15:45→22:00)
[2020-09-03] MEDS ORDERED: Ringers Solution, Lactated 500 ML IVC ONE ×2 (16:00→16:15)
[2020-09-03 17:00] LABS: Protein/Creatinine Ratio,Urine 2.19 mg/mg (0.00-0.20)
[2020-09-03] MEDS: Famotidine 20 MG TABLET GTUBE SCH (18:08)
[2020-09-03] MEDS ORDERED: Ringers Solution, Lactated 1,000 ML IVC SCH (23:00)
[2020-09-04] MEDS: metroNIDAZOLE 500 MG TABLET GTUBE SCH ×2 (02:08→10:52)
[2020-09-04] MEDS: Docusate Oral Soln 100 MG/10 ML UDC GTUBE SCH ×3 (02:08→22:03)
[2020-09-04] MEDS: Ascorbic Acid 500 MG TABLET GTUBE SCH ×4 (02:10→22:07)
[2020-09-04] MEDS: *HR* OxyCODONE Immed Rel 5 MG TABLET GTUBE SCH ×4 (02:10→16:37)
[2020-09-04] MEDS: Ipratropium/Albuterol Neb 3 ML IH SCH ×4 (03:31→21:14)
[2020-09-04] MEDS ORDERED: Cefepime HCl 2,000 MG in 0.9 % Sodium Chloride Mini Bag 100 ML IVPB SCH (06:00)
[2020-09-04] MEDS: *HR* Heparin 5,000 UNIT/ML VIAL SQ SCH ×2 (06:34→16:38)
[2020-09-04] MEDS: Cefepime HCl 2,000 MG in 0.9 % Sodium Chloride Mini Bag 100 ML IVPB SCH (06:38)
[2020-09-04] MEDS: Nystatin POWDER 30 GM BOTTLE TP SCH ×2 (09:00→22:20)
[2020-09-04] MEDS: Lactobacillus 1 EACH CAP.SPRINK GTUBE SCH (10:52)
[2020-09-04] MEDS: amLODIPine 5 MG TABLET GTUBE SCH (10:52)
[2020-09-04] MEDS: Desitin (Zinc Oxide) 56 GM TUBE TP SCH ×3 (12:04→22:20)
[2020-09-04] MEDS: Artificial Tears SOLN 15 ML BOTTLE BOTH EYES SCH ×2 (12:04→22:03)
[2020-09-04 12:46] LABS: Calcium 9.1 mg/dL (8.6-10.3); Potassium 3.9 mEq/L (3.5-5.1)
[2020-09-04] MEDS: MetroNIDAZOLE 500 MG/100 ML 500 MG/100 ML BAG IVPB SCH ×2 (14:40→22:07)
[2020-09-04] MEDS: Petrolatum, White OINT.PACK TP SCH ×2 (14:40→23:11)
[2020-09-04] MEDS ORDERED: Ringers Solution, Lactated 1,000 ML IVC SCH (15:15)
[2020-09-04] MEDS: DAPTOmycin 500 MG in 0.9 % Sodium Chloride 100 ML IVPB SCH (16:26)
[2020-09-04] MEDS: Famotidine 20 MG TABLET GTUBE SCH (16:37)
[2020-09-04] MEDS: levETIRAcetam 250 MG in 0.9 % Sodium Chloride 100 ML IVPB SCH (22:26)
[2020-09-05] MEDS: *HR* OxyCODONE Immed Rel 5 MG TABLET GTUBE SCH ×4 (00:26→18:32)
[2020-09-05] MEDS: Ipratropium/Albuterol Neb 3 ML IH SCH ×4 (03:30→22:53)
[2020-09-05] MEDS: *HR* Heparin 5,000 UNIT/ML VIAL SQ SCH ×2 (06:04→16:20)
[2020-09-05] MEDS: MetroNIDAZOLE 500 MG/100 ML 500 MG/100 ML BAG IVPB SCH ×2 (06:04→11:21)
[2020-09-05] MEDS: Cefepime HCl 2,000 MG in 0.9 % Sodium Chloride Mini Bag 100 ML IVPB SCH (06:05)
[2020-09-05] MEDS: Artificial Tears SOLN 15 ML BOTTLE BOTH EYES SCH ×2 (08:26→21:34)
[2020-09-05] MEDS: Desitin (Zinc Oxide) 56 GM TUBE TP SCH ×3 (08:27→21:38)
[2020-09-05] MEDS: Petrolatum, White OINT.PACK TP SCH ×2 (08:28→21:36)
[2020-09-05] MEDS: Nystatin POWDER 30 GM BOTTLE TP SCH ×2 (08:28→21:36)
[2020-09-05] MEDS: Docusate Oral Soln 100 MG/10 ML UDC GTUBE SCH ×2 (11:12→21:35)
[2020-09-05] MEDS: Lactobacillus 1 EACH CAP.SPRINK GTUBE SCH (11:13)
[2020-09-05] MEDS: Ascorbic Acid 500 MG TABLET GTUBE SCH ×3 (11:14→21:37)
[2020-09-05] MEDS: amLODIPine 5 MG TABLET GTUBE SCH (11:14)
[2020-09-05] MEDS: hydrALAZINE 25 MG TABLET GTUBE PRN (11:37)
[2020-09-05] MEDS: levETIRAcetam 250 MG in 0.9 % Sodium Chloride 100 ML IVPB SCH (11:47)
[2020-09-05] MEDS: DAPTOmycin 500 MG in 0.9 % Sodium Chloride 100 ML IVPB SCH (16:19)
[2020-09-05] MEDS: Famotidine 20 MG TABLET GTUBE SCH (16:20)
[2020-09-05 20:04] LABS: Basophils % 0.4 %; Eosinophils # 0.3 K/mcL (0.0-0.6); Eosinophils % 5.7 %; Hematocrit 32.4 % (37.5-50.1); Hemoglobin 10.1 g/dL (12.9-16.9); Immature Granulocytes % 0.6 % (0-4); Lymphocytes # 0.9 K/mcL (0.6-4.6); Lymphocytes % 18.9 %; Mean Corpuscular HGB Conc 31.2 g/dL (31.6-35.5); Mean Corpuscular Hemoglobin 32.9 pg (28.0-33.3); Mean Corpuscular Volume 105.5 fL (83.0-100.0); Mean Platelet Volume 11.3 fL (9.4-12.4); Monocytes # 0.6 K/mcL (0.0-1.3); Monocytes % 12.6 %; Platelet Count 158 K/mcL (140-400); Red Blood Count 3.07 M/mcL (4.19-5.50); Red Cell Distribution Width 11.9 % (11.5-14.5); Segmented Neutrophils % 61.8 %; White Blood Count 4.9 K/mcL (4.3-11.1)
[2020-09-05 20:18] LABS: Calcium 8.8 mg/dL (8.6-10.3); Potassium 3.9 mEq/L (3.5-5.1)
[2020-09-06] MEDS: *HR* OxyCODONE Immed Rel 5 MG TABLET GTUBE SCH ×5 (00:05→23:38)
[2020-09-06] MEDS: metroNIDAZOLE 500 MG TABLET PO SCH ×4 (00:05→23:38)
[2020-09-06] MEDS: Ipratropium/Albuterol Neb 3 ML IH SCH ×4 (04:10→21:37)
[2020-09-06] MEDS: *HR* Heparin 5,000 UNIT/ML VIAL SQ SCH ×2 (05:43→17:26)
[2020-09-06] MEDS: Cefepime HCl 2,000 MG in 0.9 % Sodium Chloride Mini Bag 100 ML IVPB SCH (05:44)
[2020-09-06 06:41] LABS: Hemoglobin 9.9 g/dL (12.9-16.9); Red Cell Distribution Width 11.9 % (11.5-14.5)
[2020-09-06 06:43] LABS: Immature Platelets 10.1 % (1.1-6.1); Mean Corpuscular HGB Conc 30.9 g/dL (31.6-35.5); Mean Corpuscular Hemoglobin 33.1 pg (28.0-33.3); Mean Platelet Volume 12.2 fL (9.4-12.4); Red Blood Count 2.99 M/mcL (4.19-5.50); White Blood Count 5.6 K/mcL (4.3-11.1)
[2020-09-06 07:09] LABS: Potassium 3.6 mEq/L (3.5-5.1)
[2020-09-06] MEDS: Docusate Oral Soln 100 MG/10 ML UDC GTUBE SCH ×2 (07:58→21:43)
[2020-09-06] MEDS: Lactobacillus 1 EACH CAP.SPRINK GTUBE SCH (07:59)
[2020-09-06] MEDS: Petrolatum, White OINT.PACK TP SCH ×2 (07:59→21:46)
[2020-09-06] MEDS: Ascorbic Acid 500 MG TABLET GTUBE SCH ×3 (08:00→21:44)
[2020-09-06] MEDS: Desitin (Zinc Oxide) 56 GM TUBE TP SCH ×3 (08:00→21:46)
[2020-09-06] MEDS: amLODIPine 5 MG TABLET GTUBE SCH (08:00)
[2020-09-06] MEDS: Nystatin POWDER 30 GM BOTTLE TP SCH ×2 (08:01→21:46)
[2020-09-06] MEDS: Artificial Tears SOLN 15 ML BOTTLE BOTH EYES SCH ×2 (08:01→21:47)
[2020-09-06] MEDS ORDERED: Ketoconazole 2% CRM 15 GM TUBE TP SCH (15:15)
[2020-09-06] MEDS: DAPTOmycin 500 MG in 0.9 % Sodium Chloride 100 ML IVPB SCH (16:39)
[2020-09-06] MEDS: Cefepime HCl 1,000 MG in Water for inj. (sterile) 10 ML IVP SCH (17:26)
[2020-09-06] MEDS: Famotidine 20 MG TABLET GTUBE SCH (17:26)
[2020-09-06] MEDS ORDERED: Cefepime HCl 2,000 MG in 0.9 % Sodium Chloride Mini Bag 100 ML IVPB SCH (18:00)
[2020-09-07] MEDS: Ipratropium/Albuterol Neb 3 ML IH SCH ×4 (03:44→22:04)
[2020-09-07 05:34] LABS: Hematocrit 33.5 % (37.5-50.1); Hemoglobin 10.3 g/dL (12.9-16.9); Mean Corpuscular HGB Conc 30.7 g/dL (31.6-35.5); Mean Corpuscular Hemoglobin 32.5 pg (28.0-33.3); Mean Corpuscular Volume 105.7 fL (83.0-100.0); Mean Platelet Volume 11.2 fL (9.4-12.4); Platelet Count 183 K/mcL (140-400); Red Blood Count 3.17 M/mcL (4.19-5.50); White Blood Count 5.3 K/mcL (4.3-11.1)
[2020-09-07] MEDS: *HR* Heparin 5,000 UNIT/ML VIAL SQ SCH ×2 (05:34→18:46)
[2020-09-07] MEDS: *HR* OxyCODONE Immed Rel 5 MG TABLET GTUBE SCH ×3 (05:35→18:46)
[2020-09-07] MEDS: Cefepime HCl 1,000 MG in Water for inj. (sterile) 10 ML IVP SCH ×2 (05:35→18:46)
[2020-09-07 05:54] LABS: Calcium 9.1 mg/dL (8.6-10.3); Potassium 3.8 mEq/L (3.5-5.1)
[2020-09-07] MEDS: Artificial Tears SOLN 15 ML BOTTLE BOTH EYES SCH ×2 (07:56→21:34)
[2020-09-07] MEDS: Desitin (Zinc Oxide) 56 GM TUBE TP SCH ×3 (07:56→21:34)
[2020-09-07] MEDS: Nystatin POWDER 30 GM BOTTLE TP SCH ×2 (07:56→21:34)
[2020-09-07] MEDS: Petrolatum, White OINT.PACK TP SCH ×2 (07:56→21:35)
[2020-09-07] MEDS: Docusate Oral Soln 100 MG/10 ML UDC GTUBE SCH ×2 (07:57→21:33)
[2020-09-07] MEDS: Ascorbic Acid 500 MG TABLET GTUBE SCH ×3 (07:57→21:34)
[2020-09-07] MEDS: amLODIPine 5 MG TABLET GTUBE SCH (07:57)
[2020-09-07] MEDS: metroNIDAZOLE 500 MG TABLET PO SCH ×2 (07:57→15:57)
[2020-09-07] MEDS: Lactobacillus 1 EACH CAP.SPRINK GTUBE SCH (07:57)
[2020-09-07] MEDS ORDERED: D5% in Water 1,000 ML IVC SCH (10:30)
[2020-09-07] MEDS: DAPTOmycin 500 MG in 0.9 % Sodium Chloride 100 ML IVPB SCH (12:45)
[2020-09-07] MEDS: Famotidine 20 MG TABLET GTUBE SCH (18:46)
[2020-09-08] MEDS: metroNIDAZOLE 500 MG TABLET PO SCH ×4 (00:25→21:47)
[2020-09-08] MEDS: *HR* OxyCODONE Immed Rel 5 MG TABLET GTUBE SCH ×4 (00:25→18:34)
[2020-09-08] MEDS: Ipratropium/Albuterol Neb 3 ML IH SCH ×4 (03:32→22:48)
[2020-09-08 06:09] LABS: Calcium 9.1 mg/dL (8.6-10.3); Potassium 4.1 mEq/L (3.5-5.1)
[2020-09-08] MEDS: Cefepime HCl 1,000 MG in Water for inj. (sterile) 10 ML IVP SCH ×2 (06:59→18:34)
[2020-09-08] MEDS: *HR* Heparin 5,000 UNIT/ML VIAL SQ SCH ×2 (07:00→18:34)
[2020-09-08] MEDS: Petrolatum, White OINT.PACK TP SCH ×2 (10:03→21:48)
[2020-09-08] MEDS: Lactobacillus 1 EACH CAP.SPRINK GTUBE SCH (10:03)
[2020-09-08] MEDS: amLODIPine 5 MG TABLET GTUBE SCH (10:03)
[2020-09-08] MEDS: Ascorbic Acid 500 MG TABLET GTUBE SCH ×3 (10:03→21:47)
[2020-09-08] MEDS: Desitin (Zinc Oxide) 56 GM TUBE TP SCH ×3 (10:03→21:48)
[2020-09-08] MEDS: Nystatin POWDER 30 GM BOTTLE TP SCH ×2 (10:03→21:47)
[2020-09-08] MEDS: Artificial Tears SOLN 15 ML BOTTLE BOTH EYES SCH ×2 (10:04→21:48)
[2020-09-08] MEDS: Docusate Oral Soln 100 MG/10 ML UDC GTUBE SCH ×2 (10:05→21:47)
[2020-09-08] MEDS: DAPTOmycin 500 MG in 0.9 % Sodium Chloride 100 ML IVPB SCH (13:24)
[2020-09-08] MEDS: Famotidine 20 MG TABLET GTUBE SCH (18:34)
[2020-09-09] MEDS: *HR* OxyCODONE Immed Rel 5 MG TABLET GTUBE SCH ×4 (00:32→17:57)
[2020-09-09] MEDS: Ipratropium/Albuterol Neb 3 ML IH SCH ×4 (03:45→20:51)
[2020-09-09] MEDS: Cefepime HCl 1,000 MG in Water for inj. (sterile) 10 ML IVP SCH ×2 (06:32→17:57)
[2020-09-09] MEDS: *HR* Heparin 5,000 UNIT/ML VIAL SQ SCH ×2 (06:32→17:58)
[2020-09-09] MEDS: metroNIDAZOLE 500 MG TABLET PO SCH ×3 (06:34→22:38)
[2020-09-09 07:38] LABS: Hematocrit 34.7 % (37.5-50.1); Hemoglobin 10.7 g/dL (12.9-16.9); Mean Corpuscular HGB Conc 30.8 g/dL (31.6-35.5); Mean Corpuscular Hemoglobin 32.4 pg (28.0-33.3); Mean Corpuscular Volume 105.2 fL (83.0-100.0); Mean Platelet Volume 12.1 fL (9.4-12.4); Platelet Count 129 K/mcL (140-400); Red Cell Distribution Width 11.7 % (11.5-14.5)
[2020-09-09 07:55] LABS: Calcium 9.1 mg/dL (8.6-10.3); Potassium 4.4 mEq/L (3.5-5.1)
[2020-09-09] MEDS: amLODIPine 5 MG TABLET GTUBE SCH (09:26)
[2020-09-09] MEDS: Docusate Oral Soln 100 MG/10 ML UDC GTUBE SCH ×2 (09:26→22:38)
[2020-09-09] MEDS: Ascorbic Acid 500 MG TABLET GTUBE SCH ×3 (09:26→22:38)
[2020-09-09] MEDS: Lactobacillus 1 EACH CAP.SPRINK GTUBE SCH (09:26)
[2020-09-09] MEDS: Artificial Tears SOLN 15 ML BOTTLE BOTH EYES SCH ×2 (09:27→22:39)
[2020-09-09] MEDS: Desitin (Zinc Oxide) 56 GM TUBE TP SCH ×3 (09:28→22:39)
[2020-09-09] MEDS: Petrolatum, White OINT.PACK TP SCH ×2 (09:29→22:39)
[2020-09-09] MEDS: Nystatin POWDER 30 GM BOTTLE TP SCH ×2 (13:21→22:39)
[2020-09-09] MEDS: DAPTOmycin 500 MG in 0.9 % Sodium Chloride 100 ML IVPB SCH (14:45)
[2020-09-09] MEDS: Ketoconazole Shampoo 120 ML BOTTLE TP SCH (15:02)
[2020-09-09] MEDS: Famotidine 20 MG TABLET GTUBE SCH (17:58)
[2020-09-10] MEDS: *HR* OxyCODONE Immed Rel 5 MG TABLET GTUBE SCH ×3 (01:02→12:37)
[2020-09-10] MEDS: Ipratropium/Albuterol Neb 3 ML IH SCH ×4 (03:46→21:47)
[2020-09-10 06:42] LABS: Hematocrit 34.5 % (37.5-50.1); Hemoglobin 11.1 g/dL (12.9-16.9); Mean Corpuscular HGB Conc 32.2 g/dL (31.6-35.5); Mean Corpuscular Hemoglobin 32.9 pg (28.0-33.3); Mean Corpuscular Volume 102.4 fL (83.0-100.0); Mean Platelet Volume 12.7 fL (9.4-12.4); Platelet Count 100 K/mcL (140-400); Red Blood Count 3.37 M/mcL (4.19-5.50); Red Cell Distribution Width 11.5 % (11.5-14.5); White Blood Count 6.9 K/mcL (4.3-11.1)
[2020-09-10 07:03] LABS: Calcium 9.3 mg/dL (8.6-10.3); Potassium 4.4 mEq/L (3.5-5.1)
[2020-09-10] MEDS: Docusate Oral Soln 100 MG/10 ML UDC GTUBE SCH ×2 (07:52→21:22)
[2020-09-10] MEDS: amLODIPine 5 MG TABLET GTUBE SCH (07:53)
[2020-09-10] MEDS: metroNIDAZOLE 500 MG TABLET PO SCH ×2 (07:53→15:30)
[2020-09-10] MEDS: Ascorbic Acid 500 MG TABLET GTUBE SCH ×3 (07:53→21:22)
[2020-09-10] MEDS: Lactobacillus 1 EACH CAP.SPRINK GTUBE SCH (07:53)
[2020-09-10] MEDS: Cefepime HCl 1,000 MG in Water for inj. (sterile) 10 ML IVP SCH ×2 (07:54→17:38)
[2020-09-10] MEDS: *HR* Heparin 5,000 UNIT/ML VIAL SQ SCH ×2 (07:54→17:38)
[2020-09-10] MEDS: Nystatin POWDER 30 GM BOTTLE TP SCH (08:12)
[2020-09-10] MEDS: Desitin (Zinc Oxide) 56 GM TUBE TP SCH ×3 (08:14→22:27)
[2020-09-10] MEDS: Petrolatum, White OINT.PACK TP SCH (08:14)
[2020-09-10] MEDS: Artificial Tears SOLN 15 ML BOTTLE BOTH EYES SCH ×2 (08:14→22:27)
[2020-09-10] MEDS: DAPTOmycin 500 MG in 0.9 % Sodium Chloride 100 ML IVPB SCH (12:37)
[2020-09-10] MEDS: Famotidine 20 MG TABLET GTUBE SCH (17:38)
[2020-09-10] MEDS: hydrALAZINE 25 MG TABLET GTUBE PRN (21:22)
[2020-09-10] MEDS: Acetylcysteine 10% 2 ML INHSOL IH PRN (21:47)
[2020-09-11] MEDS: metroNIDAZOLE 500 MG TABLET PO SCH ×4 (01:28→22:35)
[2020-09-11] MEDS: Petrolatum, White OINT.PACK TP SCH ×2 (01:29→08:31)
[2020-09-11] MEDS: Nystatin POWDER 30 GM BOTTLE TP SCH ×3 (01:29→20:18)
[2020-09-11] MEDS: Ipratropium/Albuterol Neb 3 ML IH SCH ×4 (04:22→21:49)
[2020-09-11] MEDS: Acetylcysteine 10% 2 ML INHSOL IH PRN ×3 (04:22→21:49)
[2020-09-11 05:19] LABS: Basophils % 0.5 %; Eosinophils # 0.2 K/mcL (0.0-0.6); Eosinophils % 2.5 %; Hematocrit 33.4 % (37.5-50.1); Hemoglobin 10.6 g/dL (12.9-16.9); Immature Granulocytes % 0.4 % (0-4); Lymphocytes # 1.2 K/mcL (0.6-4.6); Lymphocytes % 15.5 %; Mean Corpuscular HGB Conc 31.7 g/dL (31.6-35.5); Mean Corpuscular Hemoglobin 32.9 pg (28.0-33.3); Mean Corpuscular Volume 103.7 fL (83.0-100.0); Mean Platelet Volume 12.6 fL (9.4-12.4); Monocytes # 0.9 K/mcL (0.0-1.3); Monocytes % 11.6 %; Neutrophils # 5.3 K/mcL (1.6-8.9); Platelet Count 149 K/mcL (140-400); Red Blood Count 3.22 M/mcL (4.19-5.50); Red Cell Distribution Width 11.8 % (11.5-14.5); Segmented Neutrophils % 69.5 %; White Blood Count 7.6 K/mcL (4.3-11.1)
[2020-09-11 05:41] LABS: Calcium 9.3 mg/dL (8.6-10.3); Potassium 4.5 mEq/L (3.5-5.1)
[2020-09-11] MEDS: Cefepime HCl 1,000 MG in Water for inj. (sterile) 10 ML IVP SCH ×2 (05:51→17:43)
[2020-09-11] MEDS: *HR* Heparin 5,000 UNIT/ML VIAL SQ SCH ×2 (05:51→17:43)
[2020-09-11] MEDS: Desitin (Zinc Oxide) 56 GM TUBE TP SCH ×3 (08:31→20:18)
[2020-09-11] MEDS: Artificial Tears SOLN 15 ML BOTTLE BOTH EYES SCH ×2 (08:31→20:17)
[2020-09-11] MEDS: Ascorbic Acid 500 MG TABLET GTUBE SCH ×3 (08:32→20:17)
[2020-09-11] MEDS: Lactobacillus 1 EACH CAP.SPRINK GTUBE SCH (08:32)
[2020-09-11] MEDS: Docusate Oral Soln 100 MG/10 ML UDC GTUBE SCH ×2 (08:32→20:16)
[2020-09-11] MEDS: amLODIPine 5 MG TABLET GTUBE SCH (08:33)
[2020-09-11] MEDS: DAPTOmycin 500 MG in 0.9 % Sodium Chloride 100 ML IVPB SCH (13:49)
[2020-09-11] MEDS: Famotidine 20 MG TABLET GTUBE SCH (17:44)
[2020-09-12] MEDS: Ipratropium/Albuterol Neb 3 ML IH SCH ×2 (04:25→10:33)
[2020-09-12] MEDS: Acetylcysteine 10% 2 ML INHSOL IH PRN (04:25)
[2020-09-12] MEDS: metroNIDAZOLE 500 MG TABLET PO SCH (06:07)
[2020-09-12] MEDS: Cefepime HCl 1,000 MG in Water for inj. (sterile) 10 ML IVP SCH (06:08)
[2020-09-12] MEDS: *HR* Heparin 5,000 UNIT/ML VIAL SQ SCH (06:09)
[2020-09-12] MEDS: Petrolatum, White OINT.PACK TP SCH ×2 (06:39→09:39)
[2020-09-12 07:54] LABS: Calcium 9.3 mg/dL (8.6-10.3); Potassium 4.5 mEq/L (3.5-5.1)
[2020-09-12 08:02] VITALS: BP 120/70; PULSE 105; TEMP 98.7
[2020-09-12] MEDS: Docusate Oral Soln 100 MG/10 ML UDC GTUBE SCH (09:38)
[2020-09-12] MEDS: amLODIPine 5 MG TABLET GTUBE SCH (09:38)
[2020-09-12] MEDS: Ascorbic Acid 500 MG TABLET GTUBE SCH (09:38)
[2020-09-12] MEDS: Lactobacillus 1 EACH CAP.SPRINK GTUBE SCH (09:38)
[2020-09-12] MEDS: Nystatin POWDER 30 GM BOTTLE TP SCH (09:39)
[2020-09-12] MEDS: Artificial Tears SOLN 15 ML BOTTLE BOTH EYES SCH (09:39)
[2020-09-12] MEDS: Desitin (Zinc Oxide) 56 GM TUBE TP SCH (09:39)
[2020-09-12] MEDS: Ketoconazole Shampoo 120 ML BOTTLE TP SCH (09:52)
[2020-09-12 10:56] LABS: Adenovirus Not Detected (Not Detect); Bordetella Pertussis Not Detected (Not Detect); Chlamydophila pneumoniae Not Detected (Not Detect); Coronavirus 229E Not Detected (Not Detect); Coronavirus HKU1 Not Detected (Not Detect); Coronavirus NL63 Not Detected (Not Detect); Coronavirus OC43 Not Detected (Not Detect); Human Metapneumovirus Not Detected (Not Detect); Human Rhinovirus/Enterovirus Not Detected (Not Detect); Influenza A Subtype 2009 H1 Not Detected (Not Detect); Influenza B Not Detected (Not Detect); Mycoplasma pneumoniae Not Detected (Not Detect); Parainfluenza Virus 1 Not Detected (Not Detect); Parainfluenza Virus 2 Not Detected (Not Detect); Parainfluenza Virus 3 Not Detected (Not Detect); Parainfluenza Virus 4 Not Detected (Not Detect); Respiratory Syncytial Virus Not Detected (Not Detect); SARS-CoV-2 Not Detected (Not Detect)
[2020-09-12 14:06] VITALS: O2SAT 95
== END 2020-09-12 14:00 | DRG 862 ==
LOC: EMEROOARM 18:42 → 3ANU 18:42 → SUATTDRO 23:21 → 3ANU 23:51 → 2NENU 08-28 02:55 → 3ANU 09-01 21:28
PROVIDERS: ADMIT Internal Medicine; ATTEND Student in an Organized Health Care Education/Training Program

== ENCOUNTER 2021-10-18 20:59 | Inpatient (IN) ==
[2021-10-18] MEDS ORDERED: Iopamidol - 370 500 ML MLS IVP ONE (21:19)
[2021-10-18] MEDS ORDERED: cefTRIAXone 1,000 MG in 0.9 % Sodium Chloride 10 ML IVP ONE (21:20)
[2021-10-18 21:35] LABS: Immature Granulocytes % 0.2 % (0-4); Red Cell Distribution Width 12.5 % (11.5-14.5)
[2021-10-18 21:36] LABS: Basophils % 0.4 %; Eosinophils # 0.4 K/mcL (0.0-0.6); Hematocrit 44.1 % (37.5-50.1); Hemoglobin 14.5 g/dL (12.9-16.9); Immature Platelets 10.8 % (1.1-6.1); Lymphocytes # 0.9 K/mcL (0.6-4.6); Lymphocytes % 20.4 %; Mean Corpuscular HGB Conc 32.9 g/dL (31.6-35.5); Mean Corpuscular Hemoglobin 33.5 pg (28.0-33.3); Mean Corpuscular Volume 101.8 fL (83.0-100.0); Mean Platelet Volume 12.8 fL (9.4-12.4); Monocytes # 0.6 K/mcL (0.0-1.3); Monocytes % 12.4 %; Neutrophils # 2.6 K/mcL (1.6-8.9); Red Blood Count 4.33 M/mcL (4.19-5.50); Segmented Neutrophils % 58.6 %; White Blood Count 4.5 K/mcL (4.3-11.1)
[2021-10-18 21:37] LABS: Platelet Count 91 K/mcL (140-400)
[2021-10-18] MEDS ORDERED: 0.9 % Sodium Chloride 1,000 ML IV ONE (21:46)
[2021-10-18 22:49] LABS: Bacteria,Urine Few per hpf (None-Few); Bilirubin,Urine Negative (Negative); Blood,Urine Negative (Negative); Calcium Oxalate Crystals,Urine Present per hpf; Clarity,Urine Turbid (Clear); Color,Urine Yellow (Yellow); Glucose,Urine (UA) Normal (Normal); Ketones,Urine Negative (Negative); Leukocyte Esterase,Urine Large (Negative); Mucus,Urine Few per lpf (None-Few); Nitrite,Urine Negative (Negative); Protein,Urine 100 mg/dL (Neg-Trace); RBC,Urine 15-30 per hpf (0-3); Specific Gravity,Urine 1.028 (1.010-1.025); Squamous Epithelial Cell,Urine Few per hpf (None-Few); Urobilinogen,Urine Normal (Normal); WBC,Urine TNTC per hpf (0-3)
[2021-10-18 22:49] LABS: Influenza A PCR Negative (Negative); Influenza B PCR Negative (Negative); Resp. Syncytial Virus PCR Negative (Negative); SARS-CoV-2 by PCR (In House) Negative (Negative)
[2021-10-18 23:56] LABS: Alanine Aminotransferase 21 Units/L (7-52); Albumin 3.4 g/dL (3.5-5.7); Alkaline Phosphatase 132 Units/L (34-104); Aspartate Amino Transferase 21 Units/L (13-39); BUN/Creatinine Ratio 69 (6-26); Bilirubin,Total 0.3 mg/dL (0.3-1.0); Blood Urea Nitrogen 22 mg/dL (8-23); Calcium 8.4 mg/dL (8.6-10.3); Carbon Dioxide 22 mEq/L (23-29); Chloride 109 mEq/L (98-107); Globulin 3.3 g/dL (2.4-3.5); Glucose 73 mg/dL (70-105); Osmolality,Calculated 286 (280-300); Potassium 4.2 mEq/L (3.5-5.1); Sodium 137 mEq/L (136-145); Total Protein 6.7 g/dL (6.4-8.9); Troponin I < 0.03 ng/mL (< 0.04)
[2021-10-19 00:09] LABS: Thyroid Stimulating Hormone 4.143 mcIU/mL (0.340-5.600)
[2021-10-19] MEDS ORDERED: Naloxone 0.4 MG/ML INJ IVP PRN (02:14)
[2021-10-19] MEDS ORDERED: Ringers Solution, Lactated 1,000 ML IVC SCH (02:15)
[2021-10-19 03:39] LABS: Basophils % 0.7 %; Eosinophils # 0.3 K/mcL (0.0-0.6); Eosinophils % 7.4 %; Hematocrit 41.6 % (37.5-50.1); Hemoglobin 13.6 g/dL (12.9-16.9); Immature Granulocytes % 0.2 % (0-4); Lymphocytes # 1.1 K/mcL (0.6-4.6); Mean Corpuscular HGB Conc 32.7 g/dL (31.6-35.5); Mean Corpuscular Hemoglobin 33.6 pg (28.0-33.3); Mean Corpuscular Volume 102.7 fL (83.0-100.0); Mean Platelet Volume 12.7 fL (9.4-12.4); Monocytes # 0.5 K/mcL (0.0-1.3); Monocytes % 11.6 %; Neutrophils # 2.4 K/mcL (1.6-8.9); Platelet Count 110 K/mcL (140-400); Red Blood Count 4.05 M/mcL (4.19-5.50); Red Cell Distribution Width 12.6 % (11.5-14.5); Segmented Neutrophils % 55.1 %; White Blood Count 4.3 K/mcL (4.3-11.1)
[2021-10-19 03:56] LABS: BUN/Creatinine Ratio 51 (6-26); Blood Urea Nitrogen 23 mg/dL (8-23); Calcium 9.7 mg/dL (8.6-10.3); Carbon Dioxide 26 mEq/L (23-29); Chloride 106 mEq/L (98-107); Glucose 67 mg/dL (70-105); Magnesium 1.9 mg/dL (1.6-2.6); Osmolality,Calculated 286 (280-300); Phosphorous 3.2 mg/dL (2.7-4.5); Potassium 4.4 mEq/L (3.5-5.1); Sodium 137 mEq/L (136-145)
[2021-10-19] MEDS ORDERED: Vancomycin 1,500 MG/265 ML IV.SOLN IVPB SCH (04:00)
[2021-10-19] MEDS ORDERED: *HR* Dextrose 50 % in Water (Vial) 50 ML VIAL IVP ONE (05:05)
[2021-10-19] MEDS: *HR* Enoxaparin 40 MG/0.4 ML SYRINGE SQ SCH (05:21)
[2021-10-19] MEDS ORDERED: Cefepime HCl 2,000 MG in 0.9 % Sodium Chloride 10 ML IVP SCH (08:00)
[2021-10-19] MEDS: Piperacillin/Tazobactam 3.375 GM in 0.9 % Sodium Chloride Mini Bag 100 ML IVPB SCH (10:58)
[2021-10-20] MEDS: Piperacillin/Tazobactam 3.375 GM in 0.9 % Sodium Chloride Mini Bag 100 ML IVPB SCH ×4 (00:17→17:20)
[2021-10-20] MEDS: *HR* Enoxaparin 40 MG/0.4 ML SYRINGE SQ SCH (05:13)
[2021-10-21] MEDS: Piperacillin/Tazobactam 3.375 GM in 0.9 % Sodium Chloride Mini Bag 100 ML IVPB SCH ×3 (00:58→15:49)
[2021-10-21 03:04] LABS: Immature Granulocytes % 0.2 % (0-4); Monocytes % 10.2 %
[2021-10-21 03:07] LABS: Basophils % 0.7 %; Eosinophils # 0.2 K/mcL (0.0-0.6); Eosinophils % 3.7 %; Hematocrit 42.7 % (37.5-50.1); Hemoglobin 13.9 g/dL (12.9-16.9); Immature Platelets 10.5 % (1.1-6.1); Lymphocytes # 0.6 K/mcL (0.6-4.6); Mean Corpuscular HGB Conc 32.6 g/dL (31.6-35.5); Mean Corpuscular Hemoglobin 32.8 pg (28.0-33.3); Mean Corpuscular Volume 100.7 fL (83.0-100.0); Mean Platelet Volume 12.7 fL (9.4-12.4); Monocytes # 0.5 K/mcL (0.0-1.3); Neutrophils # 3.4 K/mcL (1.6-8.9); Red Blood Count 4.24 M/mcL (4.19-5.50); Red Cell Distribution Width 12.3 % (11.5-14.5); Segmented Neutrophils % 73.2 %; White Blood Count 4.6 K/mcL (4.3-11.1)
[2021-10-21 03:16] LABS: Platelet Count 99 K/mcL (140-400)
[2021-10-21 03:26] LABS: BUN/Creatinine Ratio 52 (6-26); Blood Urea Nitrogen 23 mg/dL (8-23); Calcium 10.1 mg/dL (8.6-10.3); Carbon Dioxide 22 mEq/L (23-29); Chloride 103 mEq/L (98-107); Glucose 62 mg/dL (70-105); Osmolality,Calculated 290 (280-300); Potassium 3.8 mEq/L (3.5-5.1); Sodium 139 mEq/L (136-145)
[2021-10-21] MEDS: *HR* Enoxaparin 40 MG/0.4 ML SYRINGE SQ SCH (05:28)
[2021-10-21] MEDS ORDERED: Scopolamine Patch 1.5 MG PATCH.TD72 TD SCH (10:30)
[2021-10-21] MEDS: Amoxicillin/Clavulanate 400 MG/5 ML UDC PO SCH (16:52)
[2021-10-22 05:18] VITALS: PULSE 72
[2021-10-22] MEDS: *HR* Enoxaparin 40 MG/0.4 ML SYRINGE SQ SCH (05:26)
[2021-10-22] MEDS: Amoxicillin/Clavulanate 400 MG/5 ML UDC PO SCH (05:26)
[2021-10-22 10:06] LABS: Magnesium 1.8 mg/dL (1.6-2.6); Phosphorous 2.8 mg/dL (2.7-4.5)
[2021-10-22 11:50] VITALS: BP 147/80; TEMP 98.1; O2SAT 93
== END 2021-10-22 13:50 | DRG 871 ==
LOC: 3NENU 20:59 → EMEROOARM 20:59 → SUATTDRO 10-19 02:01 → 3NENU 10-19 02:40 → SUATTDRO 10-20 14:41
PROVIDERS: ADMIT Internal Medicine; ATTEND Student in an Organized Health Care Education/Training Program

== ENCOUNTER 2021-10-25 00:20 | Inpatient (IN) ==
[2021-10-25] MEDS ORDERED: Iopamidol - 370 500 ML MLS IVP ONE (01:45)
[2021-10-25 02:14] LABS: Basophils % 0.5 %; Eosinophils % 14.2 %; Mean Platelet Volume 11.6 fL (9.4-12.4); Red Cell Distribution Width 12.5 % (11.5-14.5)
[2021-10-25 02:16] LABS: Eosinophils # 0.8 K/mcL (0.0-0.6); Hematocrit 42.3 % (37.5-50.1); Hemoglobin 13.7 g/dL (12.9-16.9); Immature Granulocytes % 0.4 % (0-4); Immature Platelets 8.8 % (1.1-6.1); Lymphocytes # 1.1 K/mcL (0.6-4.6); Lymphocytes % 18.8 %; Mean Corpuscular HGB Conc 32.4 g/dL (31.6-35.5); Mean Corpuscular Hemoglobin 33.3 pg (28.0-33.3); Mean Corpuscular Volume 102.7 fL (83.0-100.0); Monocytes # 0.5 K/mcL (0.0-1.3); Monocytes % 8.7 %; Neutrophils # 3.2 K/mcL (1.6-8.9); Platelet Count 117 K/mcL (140-400); Red Blood Count 4.12 M/mcL (4.19-5.50); Segmented Neutrophils % 57.4 %; White Blood Count 5.6 K/mcL (4.3-11.1)
[2021-10-25 02:20] LABS: VBG PH 7.36 pH Units (7.32-7.42)
[2021-10-25 02:47] LABS: Bacteria,Urine Few per hpf (None-Few); Bilirubin,Urine Negative (Negative); Blood,Urine Negative (Negative); Calcium Oxalate Crystals,Urine Present per hpf; Clarity,Urine Turbid (Clear); Color,Urine Yellow (Yellow); Glucose,Urine (UA) Normal (Normal); Hyaline Casts,Urine Few per lpf (None Seen); Ketones,Urine Negative (Negative); Leukocyte Esterase,Urine Moderate (Negative); Mucus,Urine Few per lpf (None-Few); Nitrite,Urine Negative (Negative); PH,Urine 7.5 pH Units (5.0-8.0); Protein,Urine 70 mg/dL (Neg-Trace); RBC,Urine 15-30 per hpf (0-3); Specific Gravity,Urine 1.021 (1.010-1.025); Squamous Epithelial Cell,Urine Moderate per hpf (None-Few); Transitional Epi Cells,Urine Few per hpf (None-Few); Urobilinogen,Urine Normal (Normal); WBC,Urine 30-50 per hpf (0-3)
[2021-10-25 02:50] LABS: Alanine Aminotransferase 23 Units/L (7-52); Albumin 3.7 g/dL (3.5-5.7); Alkaline Phosphatase 122 Units/L (34-104); Aspartate Amino Transferase 21 Units/L (13-39); BUN/Creatinine Ratio 54 (6-26); Bilirubin,Direct 0.1 mg/dL (0.0-0.2); Bilirubin,Indirect 0.2 mg/dL (0.0-1.0); Bilirubin,Total 0.3 mg/dL (0.3-1.0); Blood Urea Nitrogen 20 mg/dL (8-23); Calcium 9.5 mg/dL (8.6-10.3); Carbon Dioxide 28 mEq/L (23-29); Chloride 108 mEq/L (98-107); Globulin 3.7 g/dL (2.4-3.5); Glucose 87 mg/dL (70-105); Lipase 19 Units/L (11-82); Magnesium 1.8 mg/dL (1.6-2.6); Osmolality,Calculated 294 (280-300); Potassium 4.2 mEq/L (3.5-5.1); Sodium 141 mEq/L (136-145); Total Protein 7.4 g/dL (6.4-8.9); Troponin I < 0.03 ng/mL (< 0.04)
[2021-10-25 03:01] LABS: Thyroid Stimulating Hormone 7.901 mcIU/mL (0.340-5.600)
[2021-10-25 03:02] LABS: Influenza A PCR Negative (Negative); Influenza B PCR Negative (Negative); Resp. Syncytial Virus PCR Negative (Negative)
[2021-10-25] MEDS ORDERED: cefTRIAXone 1,000 MG in 0.9 % Sodium Chloride Mini Bag 100 ML IVPB ONE (03:02)
[2021-10-25 03:05] LABS: SARS-CoV-2 by PCR (In House) Negative (Negative)
[2021-10-25] MEDS ORDERED: 0.9 % Sodium Chloride 1,000 ML IVC ONE (03:07)
[2021-10-25 03:43] LABS: Triiodothyronine (T3) Free 4.05 pg/mL (2.50-3.90)
[2021-10-25] MEDS ORDERED: Naloxone 0.4 MG/ML INJ IVP PRN (05:57)
[2021-10-25] MEDS ORDERED: Ondansetron 4 MG/2 ML VIAL IVP PRN (05:57)
[2021-10-25] MEDS ORDERED: Acetaminophen 325 MG TABLET PO PRN (06:00)
[2021-10-25] MEDS: 0.9 % Sodium Chloride 1,000 ML IVC SCH (08:34)
[2021-10-25] MEDS ORDERED: D5% in Water 1,000 ML IVC PRN (11:26)
[2021-10-25] MEDS ORDERED: *HR* Dextrose 50 % in Water (Syg) 50 ML SYRINGE IVP PRN (11:26)
[2021-10-25] MEDS ORDERED: Dextrose Gel 15 GM/37.5 ML TUBE PO PRN ×2 (11:26)
[2021-10-25] MEDS: Insulin LISPRO 300 UNITS/3 ML VIAL SUBQ SCH ×2 (12:57→17:25)
[2021-10-26] MEDS: Insulin LISPRO 300 UNITS/3 ML VIAL SUBQ SCH ×4 (00:20→17:44)
[2021-10-26 02:18] LABS: Hematocrit 40.7 % (37.5-50.1); Hemoglobin 13.2 g/dL (12.9-16.9); Mean Corpuscular HGB Conc 32.4 g/dL (31.6-35.5); Mean Corpuscular Hemoglobin 33.5 pg (28.0-33.3); Mean Corpuscular Volume 103.3 fL (83.0-100.0); Mean Platelet Volume 12.2 fL (9.4-12.4); Platelet Count 130 K/mcL (140-400); Red Blood Count 3.94 M/mcL (4.19-5.50); Red Cell Distribution Width 12.6 % (11.5-14.5)
[2021-10-26 02:37] LABS: BUN/Creatinine Ratio 44 (6-26); Blood Urea Nitrogen 24 mg/dL (8-23); Calcium 9.3 mg/dL (8.6-10.3); Carbon Dioxide 29 mEq/L (23-29); Chloride 110 mEq/L (98-107); Glucose 91 mg/dL (70-105); Osmolality,Calculated 306 (280-300); Phosphorous 3.1 mg/dL (2.7-4.5); Potassium 4.2 mEq/L (3.5-5.1); Sodium 146 mEq/L (136-145)
[2021-10-26] MEDS: 0.9 % Sodium Chloride 1,000 ML IVC SCH ×2 (05:57→17:45)
[2021-10-26] MEDS: cefTRIAXone 2,000 MG in 0.9 % Sodium Chloride 10 ML IVP SCH (05:58)
[2021-10-26] MEDS ORDERED: cefTRIAXone 1,000 MG in 0.9 % Sodium Chloride 10 ML IVP SCH (06:00)
[2021-10-26] MEDS ORDERED: Bisacodyl 10 MG RECTAL SUPPOSITORY RC PRN (11:06)
[2021-10-26] MEDS ORDERED: Scopolamine Patch 1.5 MG PATCH.TD72 TD SCH (11:15)
[2021-10-26] MEDS ORDERED: Ipratropium/Albuterol Neb 3 ML ONE (11:25)
[2021-10-26] MEDS: Ipratropium/Albuterol Neb 3 ML IH SCH ×3 (11:42→22:29)
[2021-10-26] MEDS: Artificial Tears SOLN 15 ML BOTTLE BOTH EYES SCH (20:36)
[2021-10-26] MEDS ORDERED: MICONAZOLE NITRATE 71 GM TP SCH (21:00)
[2021-10-27] MEDS: Insulin LISPRO 300 UNITS/3 ML VIAL SUBQ SCH ×5 (01:27→23:37)
[2021-10-27 03:09] LABS: BUN/Creatinine Ratio 48 (6-26); Blood Urea Nitrogen 19 mg/dL (8-23); Calcium 9.1 mg/dL (8.6-10.3); Carbon Dioxide 24 mEq/L (23-29); Chloride 110 mEq/L (98-107); Glucose 90 mg/dL (70-105); Magnesium 1.8 mg/dL (1.6-2.6); Osmolality,Calculated 292 (280-300); Phosphorous 2.9 mg/dL (2.7-4.5); Potassium 4.4 mEq/L (3.5-5.1); Sodium 140 mEq/L (136-145)
[2021-10-27] MEDS: Ipratropium/Albuterol Neb 3 ML IH SCH ×4 (04:40→22:57)
[2021-10-27] MEDS: Levothyroxine 25 MCG TABLET GTUBE SCH (05:22)
[2021-10-27] MEDS: cefTRIAXone 2,000 MG in 0.9 % Sodium Chloride 10 ML IVP SCH (05:22)
[2021-10-27] MEDS: Famotidine 20 MG TABLET GTUBE SCH (07:57)
[2021-10-27] MEDS: amLODIPine 5 MG TABLET GTUBE SCH (07:57)
[2021-10-27] MEDS: Artificial Tears SOLN 15 ML BOTTLE BOTH EYES SCH ×2 (07:58→21:01)
[2021-10-27] MEDS: 0.9 % Sodium Chloride 1,000 ML IVC SCH ×2 (20:43→20:44)
[2021-10-27] MEDS: *HR* Heparin 5,000 UNIT/ML VIAL SQ SCH (21:01)
[2021-10-28] MEDS: Ipratropium/Albuterol Neb 3 ML IH SCH ×4 (04:01→22:58)
[2021-10-28] MEDS: Insulin LISPRO 300 UNITS/3 ML VIAL SUBQ SCH ×3 (05:38→19:59)
[2021-10-28] MEDS: *HR* Heparin 5,000 UNIT/ML VIAL SQ SCH ×3 (05:39→21:13)
[2021-10-28] MEDS: Levothyroxine 25 MCG TABLET GTUBE SCH (05:40)
[2021-10-28] MEDS: cefTRIAXone 2,000 MG in 0.9 % Sodium Chloride 10 ML IVP SCH (05:40)
[2021-10-28] MEDS ORDERED: SELENIUM SULFIDE TP SCH (09:00)
[2021-10-28] MEDS: Artificial Tears SOLN 15 ML BOTTLE BOTH EYES SCH ×2 (10:09→21:12)
[2021-10-28] MEDS: amLODIPine 5 MG TABLET GTUBE SCH (10:10)
[2021-10-28] MEDS: Famotidine 20 MG TABLET GTUBE SCH (10:10)
[2021-10-29] MEDS: Insulin LISPRO 300 UNITS/3 ML VIAL SUBQ SCH ×2 (01:25→06:00)
[2021-10-29 03:14] VITALS: BP 120/39; PULSE 61; TEMP 97.7
[2021-10-29] MEDS: Ipratropium/Albuterol Neb 3 ML IH SCH (04:50)
[2021-10-29 04:52] VITALS: O2SAT 95
[2021-10-29] MEDS: cefTRIAXone 2,000 MG in 0.9 % Sodium Chloride 10 ML IVP SCH (06:00)
[2021-10-29] MEDS: *HR* Heparin 5,000 UNIT/ML VIAL SQ SCH (06:00)
[2021-10-29] MEDS: Levothyroxine 25 MCG TABLET GTUBE SCH (06:00)
[2021-10-29 08:52] LABS: Influenza A PCR Negative (Negative); Influenza B PCR Negative (Negative); Resp. Syncytial Virus PCR Negative (Negative)
[2021-10-29 08:53] LABS: SARS-CoV-2 by PCR (In House) Negative (Negative)
== END 2021-10-29 09:26 | DRG 699 ==
LOC: EMEROOARM 00:20 → 2NENU 00:20
PROVIDERS: ADMIT Internal Medicine; ATTEND Internal Medicine

== ENCOUNTER 2021-12-14 20:55 | Observation (INO) ==
[2021-12-14 21:29] LABS: Basophils % 0.2 %; Hematocrit 40.4 % (37.5-50.1); Hemoglobin 12.9 g/dL (12.9-16.9); Immature Granulocytes % 0.5 % (0-4); Lymphocytes % 2.1 %; Mean Corpuscular HGB Conc 31.9 g/dL (31.6-35.5); Mean Corpuscular Hemoglobin 33.2 pg (28.0-33.3); Mean Corpuscular Volume 104.1 fL (83.0-100.0); Mean Platelet Volume 12.6 fL (9.4-12.4); Monocytes # 0.4 K/mcL (0.0-1.3); Monocytes % 3.8 %; Neutrophils # 10.9 K/mcL (1.6-8.9); Red Blood Count 3.88 M/mcL (4.19-5.50); Red Cell Distribution Width 12.3 % (11.5-14.5); Segmented Neutrophils % 93.4 %; White Blood Count 11.7 K/mcL (4.3-11.1)
[2021-12-14 21:31] LABS: Lymphocytes # 0.3 K/mcL (0.6-4.6)
[2021-12-14 21:32] LABS: Platelet Count 72 K/mcL (140-400)
[2021-12-14] MEDS ORDERED: Iopamidol - 370 500 ML MLS IVP ONE (21:37)
[2021-12-14 21:50] LABS: BUN/Creatinine Ratio 55 (6-26); Blood Urea Nitrogen 27 mg/dL (8-23); Calcium 9.4 mg/dL (8.6-10.3); Carbon Dioxide 28 mEq/L (23-29); Chloride 104 mEq/L (98-107); Glucose 106 mg/dL (70-105); Osmolality,Calculated 292 (280-300); Potassium 4.7 mEq/L (3.5-5.1); Sodium 138 mEq/L (136-145)
[2021-12-15] MEDS ORDERED: Cefepime HCl 2,000 MG in 0.9 % Sodium Chloride 10 ML IVP ONE
[2021-12-15] MEDS ORDERED: Naloxone 0.4 MG/ML INJ IVP PRN (00:50)
[2021-12-15] MEDS ORDERED: Ondansetron 4 MG/2 ML VIAL IVP PRN (00:50)
[2021-12-15] MEDS ORDERED: D5% in Water 1,000 ML IVC PRN (03:01)
[2021-12-15] MEDS ORDERED: *HR* Dextrose 50 % in Water (Syg) 50 ML SYRINGE IVP PRN (03:01)
[2021-12-15] MEDS ORDERED: Dextrose Gel 15 GM/37.5 ML TUBE PO PRN ×2 (03:01)
[2021-12-15] MEDS: Ipratropium/Albuterol Neb 3 ML IH SCH ×4 (03:48→22:55)
[2021-12-15 03:53] LABS: Hemoglobin 13.2 g/dL (12.9-16.9)
[2021-12-15 03:55] LABS: Basophils % 0.2 %; Hematocrit 41.5 % (37.5-50.1); Immature Granulocytes % 0.5 % (0-4); Immature Platelets 11.9 % (1.1-6.1); Lymphocytes # 0.4 K/mcL (0.6-4.6); Lymphocytes % 3.9 %; Mean Corpuscular HGB Conc 31.8 g/dL (31.6-35.5); Mean Corpuscular Hemoglobin 32.8 pg (28.0-33.3); Mean Corpuscular Volume 103.2 fL (83.0-100.0); Mean Platelet Volume 12.2 fL (9.4-12.4); Monocytes # 0.6 K/mcL (0.0-1.3); Neutrophils # 9.9 K/mcL (1.6-8.9); Red Blood Count 4.02 M/mcL (4.19-5.50); Red Cell Distribution Width 12.4 % (11.5-14.5); Segmented Neutrophils % 90.4 %
[2021-12-15 03:56] LABS: Platelet Count 78 K/mcL (140-400)
[2021-12-15 04:02] LABS: BUN/Creatinine Ratio 55 (6-26); Blood Urea Nitrogen 28 mg/dL (8-23); C-Reactive Protein 195 mg/L (Less than 10); Calcium 9.7 mg/dL (8.6-10.3); Carbon Dioxide 29 mEq/L (23-29); Chloride 104 mEq/L (98-107); Glucose 89 mg/dL (70-105); Osmolality,Calculated 293 (280-300); Phosphorous 2.7 mg/dL (2.7-4.5); Potassium 4.8 mEq/L (3.5-5.1); Sodium 139 mEq/L (136-145)
[2021-12-15] MEDS ORDERED: *HR* Heparin 5,000 UNIT/ML VIAL SQ SCH (06:00)
[2021-12-15] MEDS ORDERED: Vancomycin 1,500 MG/265 ML IV.SOLN IVPB SCH (06:00)
[2021-12-15] MEDS: Cefepime HCl 2,000 MG in 0.9 % Sodium Chloride 10 ML IVP SCH ×2 (08:03→17:47)
[2021-12-15] MEDS ORDERED: 0.9 % Sodium Chloride 1,000 ML ONE (09:23)
[2021-12-15 17:56] LABS: Bilirubin,Urine Negative (Negative); Blood,Urine Large (Negative); Clarity,Urine Ex.Turbid (Clear); Color,Urine Brown (Yellow); Glucose,Urine (UA) Normal (Normal); Ketones,Urine Trace mg/dL (Negative); Leukocyte Esterase,Urine Large (Negative); Nitrite,Urine Negative (Negative); Protein,Urine 200 mg/dL (Neg-Trace); Specific Gravity,Urine > 1.030 (1.010-1.025); Urobilinogen,Urine Normal (Normal)
[2021-12-15] MEDS: Vancomycin 1,500 MG/265 ML IV.SOLN IVPB SCH (20:31)
[2021-12-16] MEDS: Cefepime HCl 2,000 MG in 0.9 % Sodium Chloride 10 ML IVP SCH ×3 (00:30→15:35)
[2021-12-16] MEDS: Ipratropium/Albuterol Neb 3 ML IH SCH ×4 (04:38→20:38)
[2021-12-16 09:30] LABS: Hematocrit 40.8 % (37.5-50.1); Mean Corpuscular Volume 104.1 fL (83.0-100.0); Red Blood Count 3.92 M/mcL (4.19-5.50)
[2021-12-16 09:31] LABS: Immature Platelets 11.4 % (1.1-6.1); Mean Corpuscular HGB Conc 31.9 g/dL (31.6-35.5); Mean Corpuscular Hemoglobin 33.2 pg (28.0-33.3); Mean Platelet Volume 12.6 fL (9.4-12.4); Red Cell Distribution Width 12.6 % (11.5-14.5); White Blood Count 4.7 K/mcL (4.3-11.1)
[2021-12-16 09:44] LABS: BUN/Creatinine Ratio 67 (6-26); Blood Urea Nitrogen 31 mg/dL (8-23); Calcium 9.5 mg/dL (8.6-10.3); Carbon Dioxide 30 mEq/L (23-29); Chloride 107 mEq/L (98-107); Glucose 136 mg/dL (70-105); Osmolality,Calculated 301 (280-300); Potassium 3.8 mEq/L (3.5-5.1); Sodium 141 mEq/L (136-145)
[2021-12-16] MEDS: Vancomycin 1,500 MG/265 ML IV.SOLN IVPB SCH (10:21)
[2021-12-16 17:13] LABS: Influenza A PCR Negative (Negative); Influenza B PCR Negative (Negative); Resp. Syncytial Virus PCR Negative (Negative)
[2021-12-16 17:14] LABS: SARS-CoV-2 by PCR (In House) Negative (Negative)
[2021-12-16] MEDS ORDERED: BALSAM PERU TP PRN (17:33)
[2021-12-16] MEDS ORDERED: hydrALAZINE 25 MG TABLET GTUBE PRN (17:33)
[2021-12-16] MEDS ORDERED: Bisacodyl 10 MG RECTAL SUPPOSITORY RC PRN (17:33)
[2021-12-16] MEDS ORDERED: CASTOR OIL TP PRN (17:33)
[2021-12-16] MEDS ORDERED: SELENIUM SULFIDE TP SCH (17:45)
[2021-12-16] MEDS ORDERED: Scopolamine Patch 1.5 MG PATCH.TD72 TD SCH (17:45)
[2021-12-16] MEDS: Ascorbic Acid 500 MG TABLET GTUBE SCH (21:54)
[2021-12-16] MEDS: Artificial Tears SOLN 15 ML BOTTLE BOTH EYES SCH (21:56)
[2021-12-17] MEDS: Cefepime HCl 2,000 MG in 0.9 % Sodium Chloride 10 ML IVP SCH (00:13)
[2021-12-17 03:29] VITALS: TEMP 98.8
[2021-12-17] MEDS: Ipratropium/Albuterol Neb 3 ML IH SCH ×2 (04:17→09:15)
[2021-12-17] MEDS ORDERED: Levothyroxine 25 MCG TABLET GTUBE SCH (06:30)
[2021-12-17] MEDS ORDERED: Vancomycin 1,500 MG/265 ML IV.SOLN IVPB SCH (09:00)
[2021-12-17] MEDS ORDERED: Lactobacillus 1 EACH CAP.SPRINK GTUBE SCH (09:00)
[2021-12-17] MEDS ORDERED: amLODIPine 5 MG TABLET GTUBE SCH (09:00)
[2021-12-17 10:26] VITALS: BP 131/72; PULSE 75; O2SAT 87
[2021-12-17] MEDS: Artificial Tears SOLN 15 ML BOTTLE BOTH EYES SCH (11:29)
[2021-12-17] MEDS: Ascorbic Acid 500 MG TABLET GTUBE SCH (11:31)
== END 2021-12-17 13:43 ==
LOC: 3NENU 20:55 → EMEROOARM 20:55 → SUATTDRO 12-15 00:48 → 3NENU 12-15 01:27
PROVIDERS: ADMIT Internal Medicine; ATTEND Internal Medicine